=== PATIENT | female | born 1940 | race Caucasian/White ===

== ENCOUNTER → 2016-12-11 | Outpatient (CLI) | payer MEDICARE ==
--- NOTE | 2016-12-11 10:58 | CT ---
EXAM DESCRIPTION: Chest w/Contrast CLINICAL HISTORY: PULMONARY NODULE COMPARISON: September 02, 2016 TECHNIQUE: Post IV contrasted multidetector CT imaging of the chest. Multiplanar reconstructions were provided. FINDINGS: The inflammatory soft tissue density seen within the lateral right lung base is stable. It measures 2 cm in diameter. There is once again moderate emphysema noted bilaterally. All findings within the lungs are unchanged when compared to the prior study from three months ago. No pleural disease noted. The mediastinum has remained stable with no evidence of lymphadenopathy. There remains prominence of the pulmonary arteries which can be seen in setting of pulmonary artery hypertension. Coronary artery disease noted. The upper abdomen reveals no acute findings. IMPRESSION: The 2 cm area of soft tissue density within the right lung base is again noted. The differential remains the same and could be secondary to resolving inflammation or a malignancy. A follow-up in 6-9 months is suggested to help document stability. All remaining findings are unchanged including the emphysema and suggestion of pulmonary artery hypertension. Electronically signed by: Skyler Pablo MD 12/11/2016 10:57 AM CDT
== END | disposition home or self-care (01) ==
LOC: CT 09:26
PROVIDERS: ATTEND Nurse Practitioner Family
DX: E11.9 Type 2 diabetes mellitus without complications (principal); R91.1 Solitary pulmonary nodule

== ENCOUNTER 2017-07-06 08:45 | Day surgery (SDC) | payer MEDICARE ==
[2017-07-06] MEDS: PROPARACAINE 0.5% OPHTH SOL 15 ML BTTL ONE ×2 (08:19→09:20)
[~2017-07-06 08:45] MED LIST: DEXTROSE 5% 100ML 100 ML IVPB ONE; MIDAZOLAM INJ 2 MG/2 ML VIAL ONE; TOBRAMYCIN-DEXAMETH OPHTH SOL 1 DROP RIGHT_EYE ONE; TROP 1%/CYCLOPEN 1%/PHENYL 2% DROPS ONE
[2017-07-06] MEDS ORDERED: LIDOCAINE 1% PF 2 ML AMP INJ ONE (09:32)
[2017-07-06] MEDS ORDERED: GENTAMICIN 0.3% OPHTH SOL 1 DROP RIGHT_EYE ONE ×2 (09:33→09:38)
[2017-07-06] MEDS ORDERED: DEXAMETHASONE 0.1% OPHTH SOL 1 DROP RIGHT_EYE ONE ×2 (09:33→09:38)
[2017-07-06] MEDS ORDERED: BRIMONIDINE 0.2% OPHTH DROPS RIGHT_EYE ONE ×2 (09:34→09:38)
[2017-07-06 15:05] VITALS: BP 157/71; TEMP 98.4; O2SAT 95
== END 2017-07-06 10:20 | disposition home or self-care (01) ==
LOC: AMB 08:45
PROVIDERS: ATTEND Ophthalmology
DX: H25.11 Age-related nuclear cataract, right eye (principal); I10 Essential (primary) hypertension; I25.10 Atherosclerotic heart disease of native coronary artery without angina pectoris; E11.36 Type 2 diabetes mellitus with diabetic cataract; K21.9 Gastro-esophageal reflux disease without esophagitis; J44.9 Chronic obstructive pulmonary disease, unspecified; F17.200 Nicotine dependence, unspecified, uncomplicated; Z88.0 Allergy status to penicillin; Z88.8 Allergy status to other drugs, medicaments and biological substances; Z79.82 Long term (current) use of aspirin; Z79.4 Long term (current) use of insulin; Z79.899 Other long term (current) drug therapy
CPT/HCPCS: 36416; 66984; 82948; J2250; J7060

== ENCOUNTER 2017-07-16 10:00 | Day surgery (SDC) | payer MEDICARE ==
[2017-07-16] MEDS ORDERED: PROPARACAINE 0.5% OPHTH SOL 15 ML BTTL LEFT_EYE ONE ×4 (10:24→13:01)
[2017-07-16] MEDS ORDERED: TOBRAMYCIN SULF 0.3 % OPHT SOL 1 DROP LEFT_EYE ONE ×5 (10:25→13:01)
[2017-07-16] MEDS ORDERED: TROP 1%/CYCLOPEN 1%/PHENYL 2% DROPS OPHTH ONE ×3 (10:27→12:12)
[2017-07-16] MEDS ORDERED: MIDAZOLAM INJ 2 MG/2 ML VIAL ONE (11:17)
[2017-07-16] MEDS ORDERED: DEXTROSE 5% 100ML 100 ML IVPB ONE (12:17)
[2017-07-16] MEDS ORDERED: LIDOCAINE 1% PF 2 ML AMP INJ ONE (12:42)
[2017-07-16] MEDS ORDERED: DEXAMETHASONE 0.1% OPHTH SOL 1 DROP LEFT_EYE ONE ×2 (12:42→13:01)
[2017-07-16] MEDS ORDERED: BRIMONIDINE 0.2% OPHTH DROPS LEFT_EYE ONE ×2 (12:43→13:01)
[2017-07-16 13:22] VITALS: BP 176/78; TEMP 98.5; O2SAT 96
== END 2017-07-16 13:25 | disposition home or self-care (01) ==
LOC: AMB 10:00
PROVIDERS: ATTEND Ophthalmology
DX: H25.12 Age-related nuclear cataract, left eye (principal); I10 Essential (primary) hypertension; I25.10 Atherosclerotic heart disease of native coronary artery without angina pectoris; E11.36 Type 2 diabetes mellitus with diabetic cataract; Z88.0 Allergy status to penicillin; Z88.8 Allergy status to other drugs, medicaments and biological substances; Z79.4 Long term (current) use of insulin; Z79.899 Other long term (current) drug therapy
CPT/HCPCS: 66984; 82948; J2250; J7060

== ENCOUNTER → 2017-10-30 | Outpatient (CLI) | payer MEDICARE ==
--- NOTE | 2017-11-01 23:39 | CT ---
EXAM DESCRIPTION: Chest w/Contrast CLINICAL HISTORY: SOLITARY PULMONARY NODULE COMPARISON: 12/11/2016, 09/02/2016. TECHNIQUE: Axial CT images of the chest were acquired after the administration of intravenous contrast. Coronal and sagittal reconstructions were obtained. This exam was performed according to our departmental dose-optimization program which includes use of Automated Exposure Control, adjustment of the mA and/or kV according to patient size and/or use of iterative reconstruction technique. FINDINGS: Neck base: Subcentimeter left thyroid nodule. No further imaging follow-up is required. Mediastinum: Unremarkable. Lymph Nodes: No lymphadenopathy. Heart and pericardium: Normal heart size. Coronary artery calcifications. Aorta: Moderate atherosclerosis of the thoracic aorta. No aneurysm. Pulmonary Artery: Unremarkable. Central Airways: Patent. Pleura: No pneumothorax or pleural effusion. Lungs: Stable upper lobe predominant emphysema. Craniocaudal extent of right lower lobe spiculated lesion has increased in size since 12/11/2016, measuring 13 mm, previously measuring 11 mm. Most superior aspect of lesion, image 101 series 602 measures 7 mm, progressed from 2016 where it measured 5 mm. Most medial aspect of the lesion, image 90 series 4 appears more solid and nodular as compared to prior exams. Small centrilobular groundglass nodules within the right upper lobe image 34 and 33 of series 4. 2 mm subpleural nodule image 37, left upper lobe. Upper abdomen: Probable hepatic steatosis. 12 mm hypoattenuating lesion of the spleen medially appears stable from the prior exam. 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 Bones and soft tissues: No acute osseous or soft tissue abnormalities. Calcified lesion of the left breast. IMPRESSION: Progressive increase in size of right lower lobe pulmonary nodule since 09/02/2016 and 12/11/2016. Findings are concerning for malignancy. PET/CT or tissue sampling is recommended. Upper lobe predominant emphysema. Small bilateral pulmonary nodules may be followed on subsequent exams. 12 mm hypoattenuating lesion of the spleen appears stable from prior exam, and may be reevaluated on subsequent exams. Electronically signed by: Zach Gupta MD 11/01/2017 11:38 PM [employer] SPR[employer]TER
== END ==
LOC: CT 09:09
PROVIDERS: ATTEND Family Medicine
DX: R91.1 Solitary pulmonary nodule (principal); E11.9 Type 2 diabetes mellitus without complications; I10 Essential (primary) hypertension; J43.9 Emphysema, unspecified; D73.89 Other diseases of spleen

== ENCOUNTER → 2018-04-02 | Outpatient (CLI) | payer MEDICARE ==
--- NOTE | 2018-04-02 16:09 | US ---
EXAM DESCRIPTION: Extremity,Lower LT Arteries: Ultrasound. CLINICAL HISTORY: CAD I25.10 COMPARISON: None. TECHNIQUE: Doppler evaluation of the bilateral lower extremity arterial flow waveforms and velocities. FINDINGS: Arterial waveforms in the left lower extremity are biphasic from the left common femoral artery through the left dorsalis pedis artery.. . No significant blunting of the waveforms Comments: Velocities in the left lower extremity are physiologic. IMPRESSION: Doppler ultrasound evaluation of the left lower extremity arterial system indicating no evidence for significant atherosclerotic occlusive disease. Electronically signed by: Anderson Lei MD 04/02/2018 4:08 PM CDT
== END ==
LOC: US 10:00
PROVIDERS: ATTEND Family Medicine
DX: I25.10 Atherosclerotic heart disease of native coronary artery without angina pectoris (principal)

== ENCOUNTER → 2018-04-06 | Outpatient (CLI) | payer MEDICARE ==
--- NOTE | 2018-04-06 16:23 | MRI ---
EXAM DESCRIPTION: Lumbar Spine w/o Contrast : Magnetic Resonance Imaging. CLINICAL HISTORY: LUMBAR RADICULOPATHY COMPARISON: LUMBAR TECHNIQUE: Multiplanar, multiple standard sequences, non contrast MRI, lumbar spine. FINDINGS: L5-S1: Disc desiccation and minimal disc space loss posterior. Schmorl's node inferior L5. Ligament hypertrophy and facet arthrosis with mild to moderate canal narrowing. Modic type II endplate reactive changes on the right side with disc spur complex abutting the exiting right L5 nerve and borderline foraminal stenosis. Minimal narrowing right foramen. L4-5: Minimal disc space loss on the right and mild to moderate disc space loss . 5 mm disc bulge Into the left foramen with Modic type I endplate reactive changes. Disc spur complex encroaching on the left foramen which is nearly stenotic. Posterior disc bulge 4 to 5 mm in the left of midline with minimal effacement of the left subarticular recess abutting the descending left L5 nerve. Mild narrowing right foramen. L3-4: Disc desiccation with tiny posterior bulge. Minimal ligament hypertrophy posteriorly. Mild facet arthrosis. Canal and foramina are patent. L2-3: Normal signal in the disc and disc space. Minimal flavum ligament hypertrophy. Canal and foramina are patent. L1-2: Disc desiccation and tiny posterior and anterior bulge. Posterior elements unremarkable. Canal and foramina are patent. T12-L1: Normal disc and disc space. Posterior elements are unremarkable. Canal and foramina are patent. Conus terminates at this level. Minimal levoscoliosis L2-3. Paravertebral soft tissues paraspinal muscle atrophy. Filling defects noted in the inferior gallbladder bright signal.. Scattered well-circumscribed objects bright T1 and T2 signal in the vertebral bodies and posterior elements. Otherwise normal marrow signal in the remaining vertebral bodies and the posterior elements. Vertebral bodies are not compressed at any level. IMPRESSION: 1. Right side moderate spondylosis at L5-S1 with disc spur complex abutting the exiting right L5 nerve bilateral foraminal stenosis. 2. 5 mm disc osteophyte bulge into the left L4-5 foramen, nearly stenotic, abutting the left L4 nerve. Left posterior disc bulge in the canal abutting the descending left L5 nerve in the subarticular recess. 3. Multiple hemangiomas. Electronically signed by: Anderson Lei MD 04/06/2018 4:21 PM CDT
== END ==
LOC: MRI 10:02
PROVIDERS: ATTEND Family Medicine
DX: M47.27 Other spondylosis with radiculopathy, lumbosacral region (principal); D18.09 Hemangioma of other sites

== ENCOUNTER 2018-04-18 05:06 | Emergency (ER) | payer MEDICARE ==
--- NOTE | 2018-04-18 06:06 | ED.PDOC ---
History of Present Illness - General Chief Complaint: Diabetic Complaint Stated Complaint: low blood sugar, racing heartbeat Time Seen by Provider: 04/18/18 06:03 Exam Limitations: no limitations - History of Present Illness Initial Comments: WOKE UP AND HER BLOOD SUGAR WAS 41, SHE WAS ALSO HAVING PAIN TO THE RIGHT LOWER LEG AND FELT THAT HER HEART WAS RACING. SHE IS AN INSULIN DEPENDENT DIABETIC. SHE DENIES ANY CHEST PAIN Timing/Duration: 1-3 hours Severity: moderate Improving Factors: nothing Worsening Factors: nothing Associated Symptoms: denies symptoms Allergies/Adverse Reactions: Allergies Ibuprofen [From Motrin] Allergy (Verified 04/18/18 05:36) Penicillins Allergy (Verified 04/18/18 05:36) Home Medications: Ambulatory Orders Insulin Lispro [HumaLOG] 3 - 4 unit SC PRN 05/02/16 Aspirin (Buffered) 325 mg [Bufferin 325 mg] 1 ea PO QD #30 tab 05/03/16 Insulin Glargine [Lantus Solostar] 30 unit SC BEDTIME #0 05/03/16 Ipratropium/Albuterol [Duoneb] 3 ml INH RTQID #0 vial 05/03/16 Valsartan [Diovan] 80 mg PO DAILY #0 tab 05/03/16 cloNAZepam [Klonopin] 0.5 mg PO QID PRN #0 tab 05/03/16 Insulin Lispro [Humalog] 0 u SUBCU ACHS PRN 07/16/17 Review of Systems - Review of Systems Constitutional: States: weakness EENTM: States: no symptoms reported Respiratory: States: no symptoms reported Cardiology: States: no symptoms reported Gastrointestinal/Abdominal: States: no symptoms reported Genitourinary: States: no symptoms reported Musculoskeletal: States: back pain, muscle pain Skin: States: no symptoms reported Neurological: States: no symptoms reported Endocrine: States: no symptoms reported Hematologic/Lymphatic: States: no symptoms reported Past Medical History (General) - Patient Medical History Hx Seizures: No Hx Stroke: Yes Hx Dementia: No Hx Asthma: No Hx of COPD: Yes Hx Cardiac Disorders: Yes Hx Congestive Heart Failure: No Hx Pacemaker: No Hx Hypertension: Yes Hx Thyroid Disease: No Hx Diabetes: Yes Hx Gastroesophageal Reflux: No Hx Renal Disease: No Hx Cancer: No Hx of HIV: No Hx Hepatitis C: No Hx MRSA: No - Vaccination History Hx Tetanus, Diphtheria Vaccination: No Hx Influenza Vaccination: No Hx Pneumococcal Vaccination: No - Social History Hx Tobacco Use: Yes Hx Chewing Tobacco Use: No Hx Alcohol Use: No Hx Substance Use: No Hx Substance Use Treatment: No Hx Depression: No Hx Physical Abuse: No Hx Emotional Abuse: No - Female History Patient : No Family Medical History - Family History Mother Family History: Unknown Age (years): 69 Living Status: Cause of : brain ca and blastoma Hx Family Asthma: No Hx Family Congestive Heart Failure: No Hx Family Hypertension: Yes Hx Family Stroke: No Hx Cardiac Disease: Yes Hx Family Diabetes: Yes - mother Age of Onset (years of age): 69 Hx Family Cancer: Yes Father Age (years): 86 Living Status: Cause of : heart and lungs Hx Family Asthma: No Hx Family Congestive Heart Failure: Yes Hx Family Hypertension: Yes Hx Family Stroke: No Hx Cardiac Disease: Yes Hx Family Diabetes: No Hx Family Cancer: Yes Physical Exam - Physical Exam General Appearance: Alert, Comfortable, Well Developed, Well Groomed, Well Hydrated, Well Nourished Eye Exam: bilateral normal Ears, Nose, Throat: hearing grossly normal, normal ENT inspection, normal pharynx Neck: non-tender, full range of motion, supple, normal inspection Respiratory: chest non-tender, lungs clear, normal breath sounds, no respiratory distress, no accessory muscle use Cardiovascular/Chest: normal peripheral pulses, regular rate, rhythm, no edema, no gallop Peripheral Pulses: radial,right: 2+, radial,left: 2+, dorsalis pedis,right: 2+, dorsalis pedis,left: 2+ Gastrointestinal/Abdominal: normal bowel sounds, non tender, soft, no organomegaly, no pulsatile mass Extremity: normal range of motion Neurologic: no motor/sensory deficits, normal mood/affect, oriented x 3 Skin Exam: normal color Progress - Progress Progress: 04/18/18 06:09 AFTER ORANGE JUICE AND CRACKERS HER BBG IS NOW 181. AHW FEELS MUCH BETTER. WILL DC HOME. - Results/Orders Results/Orders: EKG: HR OF 77, WI INTERVAL OF 196, QRS OF 78, QTC OF 459, AXIS OF 62. 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 Copy, Patient Portal Self Enrollment Instructions: DI for Diabetes Type 2, Low Blood Sugar, Adult (DC) Referrals: Kenyon Hernandez MD [Primary Care Provider] - 1-2 Weeks Home Medications: Ambulatory Orders Insulin Lispro [HumaLOG] 3 - 4 unit SC PRN 05/02/16 Aspirin (Buffered) 325 mg [Bufferin 325 mg] 1 ea PO QD #30 tab 05/03/16 Insulin Glargine [Lantus Solostar] 30 unit SC BEDTIME #0 05/03/16 Ipratropium/Albuterol [Duoneb] 3 ml INH RTQID #0 vial 05/03/16 Valsartan [Diovan] 80 mg PO DAILY #0 tab 05/03/16 cloNAZepam [Klonopin] 0.5 mg PO QID PRN #0 tab 05/03/16 Insulin Lispro [Humalog] 0 u SUBCU ACHS PRN 07/16/17
[2018-04-19 17:46] VITALS: BP 160/62; TEMP 96.6; O2SAT 99
== END 2018-04-18 06:30 | disposition home or self-care (01) ==
LOC: ER 05:06
DX: E11.649 Type 2 diabetes mellitus with hypoglycemia without coma (principal); M79.661 Pain in right lower leg; I10 Essential (primary) hypertension; J44.9 Chronic obstructive pulmonary disease, unspecified; I51.9 Heart disease, unspecified; Z79.4 Long term (current) use of insulin; Z79.82 Long term (current) use of aspirin; Z79.899 Other long term (current) drug therapy; Z86.73 Personal history of transient ischemic attack (TIA), and cerebral infarction without residual deficits; Z88.0 Allergy status to penicillin; Z88.6 Allergy status to analgesic agent; Z87.891 Personal history of nicotine dependence

== ENCOUNTER 2018-09-10 07:41 | Observation (INO) | payer MEDICARE ==
[~2018-09-10 07:41] MED LIST changes: -DEXTROSE 5% 100ML 100 ML IVPB ONE; +DEXTROSE 50% 25 GM/50 ML SYG IV ONE; -MIDAZOLAM INJ 2 MG/2 ML VIAL ONE; -TOBRAMYCIN-DEXAMETH OPHTH SOL 1 DROP RIGHT_EYE ONE; -TROP 1%/CYCLOPEN 1%/PHENYL 2% DROPS ONE
[2018-09-10] MEDS ORDERED: DEXTROSE 50% 25 GM/50 ML SYG IV ONE (07:44)
--- NOTE | 2018-09-10 07:54 | ED.PDOC ---
History of Present Illness - General Chief Complaint: General Stated Complaint: Generalized weakness, ground level fall Time Seen by Provider: 09/10/18 07:48 Source: patient Exam Limitations: clinical condition - History of Present Illness Initial Comments: patient comes in today for 1 day history of difficulty speaking, finding her words, and right sided lower extremity pain. Patient states yesterday she noted she just couldn't walk and was having a difficult time with her speech. She's tried to write something and couldn't make her hand do what she wanted it to. This started yesterday morning and is staying about the same ever since. Today EMS was called when she fell from ground level. Patient states she does not believe she herself but is just concerned with the weakness. On arrival EMS had found her to have a blood sugar of 54s and 24 grams of oral glucose was given but blood sugar recheck was 46. Patient denies any other systemic symptoms. She states below the knee on her right leg started hurting yesterday before the fall but she cannot localize a specific problem. 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 Timing/Duration: 24 hours Severity: moderate Improving Factors: nothing Worsening Factors: nothing Associated Symptoms: weakness Allergies/Adverse Reactions: Allergies Ibuprofen [From Motrin] Allergy (Verified 04/18/18 05:36) Penicillins Allergy (Verified 04/18/18 05:36) Home Medications: Ambulatory Orders Aspirin (Buffered) 325 mg [Bufferin 325 mg] 1 ea PO QD #30 tab 05/03/16 Insulin Lispro [Humalog] 0 u SUBCU ACHS PRN 07/16/17 Amlodipine Besylate 5 mg PO DAILY 09/10/18 Insulin Degludec [Tresiba Flextouch] 24 units SUBCU BEDTIME 09/10/18 Ipratropium/Albuterol [Duoneb] 3 ml INH RTQID PRN 09/10/18 Losartan Potassium 50 mg PO DAILY 09/10/18 Review of Systems - Review of Systems Constitutional: States: weakness. Denies: fever, malaise EENTM: States: no symptoms reported. Denies: eye pain, ear pain, nose congestion Respiratory: States: no symptoms reported. Denies: cough, short of breath, wheezing Cardiology: States: no symptoms reported. Denies: chest pain, edema, palpitations Gastrointestinal/Abdominal: States: no symptoms reported. Denies: abdominal pain, diarrhea, nausea, vomiting Musculoskeletal: States: see HPI Neurological: States: see HPI Past Medical History (General) - Patient Medical History Hx Seizures: No Hx Stroke: Yes Hx Dementia: No Hx Asthma: No Hx of COPD: Yes Hx Cardiac Disorders: Yes Hx Congestive Heart Failure: No Hx Pacemaker: No Hx Hypertension: Yes Hx Thyroid Disease: No Hx Diabetes: Yes Hx Gastroesophageal Reflux: No Hx Renal Disease: No Hx Cancer: No Hx of HIV: No Hx Hepatitis C: No Hx MRSA: No - Vaccination History Hx Tetanus, Diphtheria Vaccination: No Hx Influenza Vaccination: No Hx Pneumococcal Vaccination: No - Social History Hx Tobacco Use: Yes Hx Chewing Tobacco Use: No Hx Alcohol Use: No Hx Substance Use: No Hx Substance Use Treatment: No Hx Depression: No Hx Physical Abuse: No Hx Emotional Abuse: No - Female History Patient : No Family Medical History - Family History Mother Family History: Unknown Age (years): 69 Living Status: Cause of : brain ca and blastoma Hx Family Asthma: No Hx Family Congestive Heart Failure: No Hx Family Hypertension: Yes Hx Family Stroke: No Hx Cardiac Disease: Yes Hx Family Diabetes: Yes - mother Age of Onset (years of age): 69 Hx Family Cancer: Yes Father Age (years): 86 Living Status: Cause of : heart and lungs Hx Family Asthma: No Hx Family Congestive Heart Failure: Yes Hx Family Hypertension: Yes Hx Family Stroke: No Hx Cardiac Disease: Yes Hx Family Diabetes: No Hx Family Cancer: Yes Physical Exam - Physical Exam General Appearance: Alert, Frail Eye Exam: bilateral normal Ears, Nose, Throat: hearing grossly normal, normal ENT inspection, normal pharynx Neck: non-tender, full range of motion, supple, normal inspection Respiratory: chest non-tender, lungs clear, normal breath sounds Cardiovascular/Chest: normal peripheral pulses, regular rate, rhythm, no murmur Peripheral Pulses: radial,right: 2+ Gastrointestinal/Abdominal: normal bowel sounds, non tender, soft Back Exam: normal inspection Extremity: normal range of motion, non-tender, normal inspection Neurologic: alert, oriented x 3, facial droop - slight right sided weakness, motor weakness - right sided pronator drift , other - NIH stroke scale of 3 Skin Exam: normal color Progress - Progress Progress: patient is feeling a little better and not as weak with elevation of BS. However, she still has decreased fine motor on her right and speech is much different per pt and her family from baseline. Most likely TIA vs small CVA. CT is normal. The symptoms have now been present for 24 hours and she is out of treatment window. They are improving slowly. Will call for admission for observation and possible PT/ST eval and treatment. 09/10/18 09:04 09/10/18 09:33 Neuro consult agree for admission as she is out of the treatment window. will help with stroke care and will get her admitted. Spoke to substation operator chief FIREMAN and she is in agreement. - Results/Orders Results/Orders: Laboratory Results WBC 6.3 K/mm3 (4.8-10.8) 09/10/18 07:35 RBC 5.13 M/mm3 (4.20-5.40) 09/10/18 07:35 Hgb 14.7 gm/dL (12.0-16.0) 09/10/18 07:35 Hct 44.7 % (36.0-47.0) 09/10/18 07:35 MCV 87.2 fl (81.0-99.0) 09/10/18 07:35 MCH 28.7 pg (27.0-31.0) 09/10/18 07:35 MCHC 33.0 g/dL (33.0-37.0) 09/10/18 07:35 RDW 14.4 % (11.5-14.5) 09/10/18 07:35 Plt Count 328 K/mm3 (130-400) 09/10/18 07:35 MPV 8.1 fl (7.40-10.4) 09/10/18 07:35 Absolute Neuts (auto) 3.40 K/uL (1.8-6.8) 09/10/18 07:35 Absolute Lymphs (auto) 2.00 K/uL (1.0-3.4) 09/10/18 07:35 Absolute Monos (auto) 0.70 K/uL (0.2-0.8) 09/10/18 07:35 Absolute Eos (auto) 0.00 K/uL (0.0-0.4) 09/10/18 07:35 Absolute Basos (auto) 0.10 K/uL (0.0-0.1) 09/10/18 07:35 Neutrophils % 55.1 % (42.0-78.0) 09/10/18 07:35 Lymphocytes % 32.5 % (20.0-50.0) 09/10/18 07:35 Monocytes % 10.8 % (2.0-9.0) H 09/10/18 07:35 Eosinophils % 0.5 % (1.0-5.0) L 09/10/18 07:35 Basophils % 1.1 % (0.0-2.0) 09/10/18 07:35 PT 9.7 SECONDS (9.0-10.9) 09/10/18 07:35 INR 0.97 (0.9-1.15) 09/10/18 07:35 PTT (SP) 24.5 SECONDS (21.8-31.6) 09/10/18 07:35 Sodium 143 mmol/L (135-145) 09/10/18 07:35 Potassium 3.3 mmol/L (3.6-5.0) L 09/10/18 07:35 Chloride 106 mmol/L (101-111) 09/10/18 07:35 Carbon Dioxide 28 mmol/L (21-31) 09/10/18 07:35 Anion Gap 12.3 (12-18) 09/10/18 07:35 BUN 12 mg/dL (7-18) 09/10/18 07:35 Creatinine 0.57 mg/dL (0.6-1.3) L 09/10/18 07:35 BUN/Creatinine Ratio 21.1 (10-20) H 09/10/18 07:35 POC Glucose 282 mg/dL (70-105) H 09/10/18 07:35 Random Glucose 48 mg/dL (70-105) L 09/10/18 07:35 Serum Osmolality 281.9 mOsm/L (275-295) 09/10/18 07:35 Lactic Acid 0.9 mmol/L (0.5-2.2) 09/10/18 07:35 Calcium 9.5 mg/dL (8.4-10.2) 09/10/18 07:35 Total Bilirubin 0.7 mg/dL (0.2-1.0) 09/10/18 07:35 AST 21 IU/L (10-42) 09/10/18 07:35 ALT 17 IU/L (10-60) 09/10/18 07:35 Alkaline Phosphatase 90 IU/L (42-121) 09/10/18 07:35 Troponin I < 0.02 ng/mL (0.01-0.05) 09/10/18 07:35 Serum Total Protein 7.4 gm/dL (6.4-8.2) 09/10/18 07:35 Albumin 3.9 g/dl (3.2-5.5) 09/10/18 07:35 Globulin 3.5 gm/dL (2.3-3.5) 09/10/18 07:35 Albumin/Globulin Ratio 1.1 (1.1-1.9) 09/10/18 07:35 Patient Name: ANGELICA SANCHEZ Gender: Female Date of : 1940 Referring Physician: MERON STEELE Organization: [facility] Accession Number: [id number] Requested Date: September 10, 2018 07:49 Report Status: Final Requested Procedure: 1 Procedure Description: Head Modality: CT Findings Reporting MD: Ian Britt MD: Not available Dictation Time: Vice President Fixed Income: Not available Sports Teacher Date: EXAM DESCRIPTION: Head CLINICAL HISTORY: altered LOC weakness R with dysarthria COMPARISON: May 02, 2016 TECHNIQUE: Noncontrast transaxial CT images of the head are obtained from base to vertex. This exam was performed according to our departmental dose-optimization program, which includes automated exposure control, adjustment of the mA and/or kV according to patient size and/or use of iterative reconstruction technique. FINDINGS: The midline structures are not displaced. Sulci are age-appropriate. There are areas of decreased attenuation in the periventricular white matter and the white matter of the centrum semiovale. There is no evidence of mass, mass-effect, hydrocephalus, or acute intracranial hemorrhage. No abnormal extra axial fluid collection is seen. Bone windows show no evidence of depressed skull fracture. Mild calcifications of the intracranial carotid arteries are seen. The visualized paranasal sinuses are unremarkable. IMPRESSION: 1. Age-appropriate atrophy with evidence of old small vessel ischemic type changes seen. 2. No acute abnormality is seen on noncontrast CT of the head. Departure - Departure Clinical Impression: CVA (cerebral vascular accident) Qualifiers: CVA mechanism: unspecified Qualified Code(s): I63.9 - Cerebral infarction, unspecified Disposition: Admit Patient Departure Forms: ED Discharge - Pt. Copy, Patient Portal Self Enrollment Referrals: Kenyon Hernandez MD [Primary Care Provider] - 1-2 Weeks Home Medications: Ambulatory Orders Aspirin (Buffered) 325 mg [Bufferin 325 mg] 1 ea PO QD #30 tab 05/03/16 Insulin Lispro [Humalog] 0 u SUBCU ACHS PRN 07/16/17 Amlodipine Besylate 5 mg PO DAILY 09/10/18 Insulin Degludec [Tresiba Flextouch] 24 units SUBCU BEDTIME 09/10/18 Ipratropium/Albuterol [Duoneb] 3 ml INH RTQID PRN 09/10/18 Losartan Potassium 50 mg PO DAILY 09/10/18 Decision To Admit - Decistion To Admit Decision to Admit Reason: Admit from ER Decision to Admit Date: 09/10/18 Decision to Admit Time: 09:37
--- NOTE | 2018-09-10 08:11 | RAD ---
EXAM DESCRIPTION: Ankle,Right 2 Views CLINICAL HISTORY: pain COMPARISON: None. IMPRESSION: 2 views of the right ankle show diffuse osteopenia of the osseous structures without evidence of acute fracture, focal bone destruction, or joint dislocation. Soft tissues are unremarkable. Partly visualized mild osteoarthritic changes of the midfoot tarsal bones are noted. Electronically signed by: Ian Britt MD 09/10/2018 8:10 AM [facility]
--- NOTE | 2018-09-10 08:12 | RAD ---
EXAM DESCRIPTION: Tibia/Fibula,Right CLINICAL HISTORY: 78 years Female, pain COMPARISON: None. FINDINGS: Two views of the right tibia and fibula were obtained. The distal tibia and fibula are excluded from this exam, but no fracture or malalignment is seen. No radiopaque foreign body or soft tissue gas. IMPRESSION: Negative exam, with nonvisualization of the distal right tibia and fibula. Electronically signed by: Jones Reynoso MD 09/10/2018 8:11 AM [facility]
--- NOTE | 2018-09-10 08:41 | CT ---
EXAM DESCRIPTION: Head CLINICAL HISTORY: altered LOC weakness R with dysarthria COMPARISON: May 02, 2016 TECHNIQUE: Noncontrast transaxial CT images of the head are obtained from base to vertex. This exam was performed according to our departmental dose-optimization program, which includes automated exposure control, adjustment of the mA and/or kV according to patient size and/or use of iterative reconstruction technique. FINDINGS: The midline structures are not displaced. Sulci are age-appropriate. There are areas of decreased attenuation in the periventricular white matter and the white matter of the centrum semiovale. There is no evidence of mass, mass-effect, hydrocephalus, or acute intracranial hemorrhage. No abnormal extra axial fluid collection is seen. Bone windows show no evidence of depressed skull fracture. Mild calcifications of the intracranial carotid arteries are seen. The visualized paranasal sinuses are unremarkable. IMPRESSION: 1. Age-appropriate atrophy with evidence of old small vessel ischemic type changes seen. 2. No acute abnormality is seen on noncontrast CT of the head. Electronically signed by: Ian Britt MD 09/10/2018 8:40 AM [facility]
--- NOTE | 2018-09-10 10:17 | HP ---
SUPERVISING PHYSICIAN: Roel Groves M.D. CHIEF COMPLAINT: Generalized weakness and same level fall. HISTORY OF PRESENT ILLNESS: This is a 78 year-old female who has had an approximately 1 day history of difficulty speaking and right lower extremity pain. She stated that yesterday she just could not walk very well and was having a difficult time with her speech. She tried to write something and she could not make her hand do what she wanted it to. It started on morning and it has not progressed since. She was brought to the Emergency Room today after she had a same level fall. She states she did not hurt herself with the fall but she was concerned with the weakness. On arrival, EMS found her to have good sugar of 54 and gave her 24 grams of glucose. The blood sugar recheck was 46. The patient did say since she had the weakness she has not eaten much but she took her diabetic medication. She states that below the knee on her right leg started hurting yesterday but she was unable to tell of a specific injury. She has had an ischemic cerebrovascular accident approximately 5 years ago that left her with left sided weakness. In the E. R., her vital signs showed her to be afebrile, heart rate 83, blood pressure 122/70, it did go up as high as 157/69. Respiratory rate was 18, O2 sat was 94% on room air. Lab showed a CBC that was basically within normal limits. Chemistry showed sodium 143 with a slightly low potassium of 3.3, chloride 106, carbon dioxide 28, BUN 12, creatinine 0.57, glucose 48. She received some D50 and it went up to 282. Liver enzymes were within normal limits. Urinalysis was basically within normal limits. Head CT showed: 1) Age appropriate atrophy with evidence of old small vessel ischemic type changes. 2) No acute abnormality is seen on noncontrast CT of the head. Right ankle x-ray showed two views of the right ankle that showed diffuse osteopenia of the osseous structure without evidence of acute fracture, focal bone destruction or joint dislocation. Right tibia/fibula x-ray showed negative exam with nonvisualization of the distal right tibia and fibula. I was called for hospital admission. After admission the patient has a somewhat difficult time getting out the words that she would like. Her daughter was at the bedside. She complained of left sided weakness from her old stroke and said that her right leg did not hurt as much as it did previously. PAST MEDICAL HISTORY: 1. Carotid artery stenosis. 2. Cerebrovascular accident approximately 5 years ago. 3. Chronic obstructive pulmonary disease in a chronic smoker. 4. Coronary artery disease. 5. Hypertension. 6. Hyperlipidemia. 7. Lumbar disc disease. 8. Lumbar radiculopathy. 9. Solitary pulmonary nodule. PAST SURGICAL HISTORY: 1. Carotid endarterectomy on the left in 2016. 2. Hernia repair in 2012. 3. Lasik surgery in 2017. OUTPATIENT MEDICATIONS: 1. Humalog insulin. 2. DuoNeb. 3. Amlodipine. 4. 81 mg chewable aspirin. 5. Tresiba 24 units at bedtime. 6. Losartan. ALLERGIES: IBUPROFEN AND PENICILLIN. FAMILY HISTORY: Positive for coronary artery disease, astroblastoma cancer, rheumatoid arthritis, diabetes mellitus type 2 and hypothyroidism. SOCIAL HISTORY: She lives in [place]. She is retired. She is . She has 2 stepchildren. She currently smokes 5 cigarettes per day. She previously was a heavy smoker and has been for most of her life. She denies any ETOH or illicit drug use. REVIEW OF SYSTEMS: GENERAL: Negative for fatigue, fever or weight changes. HEENT: Negative for ear pain, sinus symptoms, vision changes or sore throat. RESPIRATORY: Negative for coughing, wheezing or shortness of breath. CARDIAC: Negative for chest pain, palpitations or tachycardia. GASTROINTESTINAL: Negative for abdominal pain, nausea, vomiting or diarrhea. MUSCULOSKELETAL: As per the History of Present Illness. NEUROLOGIC: As per the History of Present Illness. GENITOURINARY: Denies hematuria, dysuria or polyuria. PHYSICAL EXAMINATION: VITAL SIGNS: Temperature 97.9, heart rate 63, blood pressure 145/71, respiratory rate 18, O2 sat 96% on room air. GENERAL: This is a 78 year-old thin, frail female lying in her hospital bed. She is in no acute distress. HEENT: Normocephalic and atraumatic. Pupils are equal and reactive. Oropharynx is clear. NECK: Supple without mass. RESPIRATORY: Essentially clear to auscultation bilaterally. CHEST: There is equal rise and fall of the chest with inspiration and expiration. CARDIOVASCULAR: Regular rate and rhythm. GASTROINTESTINAL: Abdomen is soft, nondistended, non-tender. Bowel sounds are positive. EXTREMITIES: No clubbing, cyanosis or edema. She is slightly weaker on that left lower extremity than her right lower extremity. Bilateral upper extremities are equal strength. NEUROLOGIC: She is alert and oriented times three. She does have a difficult time speaking and she has dysarthria. SKIN: Warm and dry. LABORATORY: Labs are as per the History of Present Illness. Her carotid ultrasound shows occluded right internal carotid artery, high velocity flow in the external carotid arteries bilaterally consistent with critical stenosis on the right and high grade stenosis on the left. Antegrade flow in the vertebral arteries. All other labs and films have been reviewed via the EMR. ASSESSMENT: 1. 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 2. Carotid stenosis with critical stenosis on the right and high grade stenosis on the left. 3. Hypertension. 4. Chronic obstructive pulmonary disease without exacerbation. 5. Tobacco abuse in a chronic smoker. 6. History of prior cerebrovascular accident approximately 5 years ago. 7. Diabetes mellitus type 2 with hypoglycemia on admission most likely due to no food intake in the last 24 hours. PLAN: We will place the patient in observation. We will do neuro checks. I have already resulted the carotid Doppler and a neurologic consultation was done in the E. R., and said that we were doing appropriate treatment. She will have a lipid panel in the AM with her routine labs. I have also started her on sliding scale insulin with a.c. and h.s. coverage. She is on a PPI for ulcer prophylaxis and Lovenox for DVT prophylaxis. I have restarted her home medications. We have also initiated a consultation to [facility] and at some point she will most likely need a referral for severe carotid stenosis. She will be on an aspirin as well as Lovenox for right now. Will continue to monitor closely and follow as needed. #[id number] [facility]
[2018-09-10] MEDS ORDERED: SODIUM CHLORIDE 0.9% (FLUSH) 10 ML SYG IV PRN (12:33)
[2018-09-10] MEDS ORDERED: ALBUTEROL SULFATE 2.5 MG/3 ML VIAL NEB PRN (12:33)
[2018-09-10] MEDS ORDERED: GLUCAGON INJ 1 MG VIAL SUBCU PRN (12:37)
[2018-09-10] MEDS ORDERED: DEXTROSE 50% 25 GM/50 ML SYG IV PRN (12:37)
[2018-09-10] MEDS: ENOXAPARIN SODIUM 40 MG/0.4 ML SYG SUBCU SCH (12:54)
[2018-09-10] MEDS ORDERED: IV SET AND CAP CHANGE INJ INJ SCH (13:00)
--- NOTE | 2018-09-10 14:30 | US ---
EXAM DESCRIPTION: Carotid Duplex CLINICAL HISTORY: tia vs cva COMPARISON: None Available. TECHNIQUE: Carotid Doppler ultrasound FINDINGS: Right Submitted images show extensive arteriosclerotic calcified plaque at the right carotid bifurcation with no flow in the right carotid bulb consistent with right ICA occlusion. Axial images show 33% area stenosis of the mid right CCA with 68% area stenosis of the right lower carotid bulb and complete occlusion of the upper bulb and right ICA. This sonographic impression can be confirmed with conventional angiography. The following flow velocities were obtained: Common carotid artery peak systolic flow velocity measures 77 centimeters per second. Internal carotid artery peak systolic flow velocity measures 0.0 centimeters per second. External carotid artery peak systolic flow velocity measures 560 centimeters per second consistent with high-grade to critical proximal stenosis. Flow in the right vertebral artery is antegrade. Left Submitted images show extensive arteriosclerotic plaque at the left carotid bifurcation with high velocity flow in the left ECA consistent with high-grade proximal stenosis. Axial images show 18% area stenosis of the left carotid bulb and 18% area stenosis of the proximal left ICA. The following flow velocities were obtained: Common carotid artery peak systolic flow velocity measures 74 centimeters per second. Internal carotid artery peak systolic flow velocity measures 115 centimeters per second. External carotid artery peak systolic flow velocity measures 291 centimeters per second. This is consistent with moderate to high-grade proximal stenosis. Flow in the left vertebral artery is antegrade. The left internal carotid to common carotid peak systolic flow velocity ratio of 1.5 is normal. IMPRESSION: Occluded right internal carotid artery. High velocity flow in the external carotid arteries bilaterally consistent with critical stenosis on the right and high-grade stenosis on the left. Antegrade flow in the vertebral arteries. Electronically signed by: Shukri Foley MD 09/10/2018 2:29 PM [facility]
[2018-09-10] MEDS: IPRATROPIUM/ALBUTEROL 3 ML VIAL NEB SCH ×2 (16:19→20:28)
[2018-09-10] MEDS: INSULIN LISPRO 100 UNITS/ML PEN SUBCU SCH ×2 (16:48→21:19)
[2018-09-10] MEDS ORDERED: PANTOPRAZOLE SODIUM IV 40 MG VIAL ONE (20:46)
[2018-09-10] MEDS ORDERED: INSULIN DEGLUDEC 24 UNIT SUBCU SCH (21:00)
[2018-09-11] MEDS: PANTOPRAZOLE SODIUM IV 40 MG VIAL IV SCH (05:58)
[2018-09-11] MEDS: INSULIN LISPRO 100 UNITS/ML PEN SUBCU SCH ×4 (07:17→21:29)
[2018-09-11] MEDS: LOSARTAN POTASSIUM 25 MG TAB PO SCH (08:21)
[2018-09-11] MEDS: amLODIPine BESYLATE 5 MG TAB PO SCH (08:21)
[2018-09-11] MEDS: ASPIRIN (CHEWABLE) 81 MG TAB PO SCH (08:21)
[2018-09-11] MEDS ORDERED: INSULIN DEGLUDEC 15 UNIT SUBCU SCH (08:54)
[2018-09-11] MEDS ORDERED: POTASSIUM CHLORIDE 20 MEQ TAB PO ONE (08:55)
[2018-09-11] MEDS ORDERED: POTASSIUM CHLORIDE 20 MEQ TAB ONE (09:08)
[2018-09-11] MEDS: IPRATROPIUM/ALBUTEROL 3 ML VIAL NEB SCH ×3 (09:18→16:30)
[2018-09-11] MEDS: SODIUM CHLORIDE 0.9% (FLUSH) 10 ML SYG IV SCH ×2 (09:21→21:29)
[2018-09-11] MEDS: ENOXAPARIN SODIUM 40 MG/0.4 ML SYG SUBCU SCH (13:05)
--- NOTE | 2018-09-11 18:32 | PN ---
DATE: 09/11/18 SUPERVISING PHYSICIAN: Roel Groves M.D. SUBJECTIVE: The patient is lying in her hospital bed. Daughter is at the bedside as well as a friend. She has no complaints of nausea, vomiting, diarrhea, constipation, chest pain or shortness of breath. We discussed her acceptance to [facility] and her daughter can take her in the morning. OBJECTIVE: VITAL SIGNS: Temperature 97.9, heart rate 87, blood pressure 142/56, respiratory rate 18, O2 sat 93% on room air. RESPIRATORY: Essentially carpal tunnel syndrome bilaterally. She is somewhat diminished at the bases. CARDIAC: Regular rate and rhythm. NEUROLOGIC: She is awake, alert and oriented times three. She does have some slurring speech and there is some weakness in her left lower extremity. LABORATORY: CBC is basically within normal limits. Glucose was 38 early this morning and it has run as high as 384 today. Hemoglobin A1c is 7.7. Potassium was slightly low this morning at 3.1. The remainder of her electrolytes were within normal limits. LDL cholesterol was 154, HDL was 64, triglycerides 106. All other labs and films have been reviewed via the EMR. ASSESSMENT: 1. 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 2. Carotid stenosis with critical stenosis on the right and high grade stenosis on the left. 3. Hypertension. 4. Chronic obstructive pulmonary disease without exacerbation. 5. Tobacco abuse in a chronic smoker. 6. History of prior cerebrovascular accident approximately 5 years ago. 7. Diabetes mellitus type 2 with hypoglycemia on admission most likely due to poor food intake. She also had an episode of hypoglycemia this morning, again her intake of food is very poor. PLAN: We will continue present supportive care. Will plan for discharge in the morning to [facility]. Because of her poor intake I have decreased her Tresiba to 15 units at bedtime. She has also received 40 mEq of potassium orally today due to her hypokalemia. Family and the patient had no questions regarding her admission to [facility]. I will check her lab in the morning. Will continue to follow her closely and treat as needed. #[id number] [facility]
[2018-09-11] MEDS ORDERED: NON-FORMULARY MEDICATION 1 EA MIS SUBCU ONE (21:32)
[2018-09-12] MEDS: PANTOPRAZOLE SODIUM IV 40 MG VIAL IV SCH (06:07)
[2018-09-12] MEDS: INSULIN LISPRO 100 UNITS/ML PEN SUBCU SCH (07:10)
[2018-09-12] MEDS: IPRATROPIUM/ALBUTEROL 3 ML VIAL NEB SCH (07:54)
[2018-09-12] MEDS: amLODIPine BESYLATE 5 MG TAB PO SCH (08:05)
[2018-09-12] MEDS: LOSARTAN POTASSIUM 25 MG TAB PO SCH (08:05)
[2018-09-12] MEDS: ASPIRIN (CHEWABLE) 81 MG TAB PO SCH (08:06)
[2018-09-12] MEDS: SODIUM CHLORIDE 0.9% (FLUSH) 10 ML SYG IV SCH (08:06)
[2018-09-12 11:27] VITALS: BP 135/62; TEMP 98.4; O2SAT 90
--- NOTE | 2018-09-13 10:20 | DS ---
SUPERVISING PHYSICIAN: Wicho Groves MD DISCHARGE DIAGNOSIS: 1. 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 2. Carotid stenosis with critical stenosis on the right and high grade stenosis on the left. 3. Hypertension. 4. Chronic obstructive pulmonary disease without exacerbation. 5. Tobacco abuse in a chronic smoker. 6. History of prior cerebrovascular accident approximately 5 years ago. 7. Diabetes mellitus, type 2, with hypoglycemia on admission most likely due to poor food intake. She also had an episode of hypoglycemia this morning, again her intake of food is very poor. HISTORY OF PRESENT ILLNESS: This is a 78-year-old female who presented to the Emergency Room with an approximately 1-day history of difficulty speaking and right lower extremity pain. She stated that the day prior to her admission she just could not walk very well and was having a difficult time with her speech. She tried to write something and she could not make her hand do what she wanted it to. It started on morning and it had not progressed since. She was brought to the Emergency Room after she had a same level fall. She states she did not hurt herself with the fall but she was concerned with the weakness. On arrival, EMS found her blood sugar to be 54 and gave her 24 grams of glucose. The blood sugar recheck was 46. The patient did say since she had the weakness and difficulty speaking, she had not eaten much, but she did take her routinely scheduled diabetic medication. She felt that below the knee on her right leg started hurting the day before she was admitted, but she was unable to tell of a specific injury. She has had an ischemic cerebrovascular accident approximately 5 years ago that left her with some residual left sided weakness. In the Emergency Room, her vital signs showed her to be afebrile, heart rate 83, blood pressure 122/70, it did go up as high as 157/69. Respiratory rate was 18, O2 sat was 94% on room air. Lab showed a CBC that was basically within normal limits. Chemistry showed sodium 143 with a slightly low potassium of 3.3, chloride 106, carbon dioxide 28, BUN 12, creatinine 0.57, glucose 48. She received some D50 in the Emergency Room and it went up to 282. Liver enzymes were within normal limits. Urinalysis was basically within normal limits. Head CT showed: 1) Age-appropriate atrophy with evidence of old small vessel ischemic type changes. 2) No acute abnormality is seen on noncontrast CT of the head. Right ankle x-ray showed two views of the right ankle that showed diffuse osteopenia of the osseous structure without evidence of acute fracture, focal bone destruction or joint dislocation. Right tibia/fibula x-ray showed negative exam with nonvisualization of the distal right tibia and fibula. Neurology was consulted and felt the patient did have a stroke, but because of the length of time since the onset of symptoms, there was no further treatment that could be done other than placing her on an aspirin and having neurologic followup. I was called for hospital admission. HOSPITAL COURSE: The patient was placed in observation. On exam after admission, she complained of left sided weakness from her old stroke, but that her right leg did not hurt like it did when she came to the Emergency Room. Over the next 24 hours, she had no further symptoms of stroke, but it was felt that she did have a stroke because of her difficulty speaking as well as some left sided weakness. It was felt she would benefit from [facility] and they were called in consultation. Her CBC remained basically within normal limits. She was also placed on prophylactic Lovenox in the hospital as well as continued on her aspirin. Her blood sugars ranged from a low of 41 to as high as 384. She was on sliding scale Humalog insulin. Today, her electrolytes were basically within normal limits. Her long-active insulin was decreased to 10 units on the night prior to her discharge because she had poor oral intake. Her blood sugar was 49 this morning, but after breakfast, it was 94. She will be discharged to [facility] today in stable condition. DISCHARGE PLAN: The patient will be discharged to [facility] for physical therapy for strengthening and conditioning. She will also have speech therapy. She is to resume her diabetic diet as well as her previous medication including an aspirin. After discharge from [facility], she is to followup with her primary care physician, Dr. Hernandez. DISCHARGE MEDICATIONS: 1. Humalog insulin. 2. Losartan. 3. Amlodipine. 4. Tresiba long-acting insulin. 5. Aspirin. 6. DuoNeb. #[id number] [facility]
== END 2018-09-12 11:42 ==
LOC: ER 07:41 → MS 10:16 → OBSVTOIN 10:16 → INTOOBSV 10:16
PROVIDERS: ADMIT Nurse Practitioner Acute Care; ATTEND Nurse Practitioner Acute Care
DX: I67.2 Cerebral atherosclerosis (principal); R47.1 Dysarthria and anarthria; G83.14 Monoplegia of lower limb affecting left nondominant side; I65.23 Occlusion and stenosis of bilateral carotid arteries; E11.649 Type 2 diabetes mellitus with hypoglycemia without coma; I10 Essential (primary) hypertension; J44.9 Chronic obstructive pulmonary disease, unspecified; F17.210 Nicotine dependence, cigarettes, uncomplicated; M79.662 Pain in left lower leg; I25.10 Atherosclerotic heart disease of native coronary artery without angina pectoris; E78.5 Hyperlipidemia, unspecified; M51.16 Intervertebral disc disorders with radiculopathy, lumbar region; Z86.73 Personal history of transient ischemic attack (TIA), and cerebral infarction without residual deficits; Z79.4 Long term (current) use of insulin; Z79.82 Long term (current) use of aspirin; Z79.899 Other long term (current) drug therapy; Z88.0 Allergy status to penicillin; Z88.6 Allergy status to analgesic agent

== ENCOUNTER 2019-04-14 16:37 | Inpatient (IN) | payer MEDICARE, MEDICAID ==
--- NOTE | 2019-04-14 17:14 | ED.PDOC ---
History of Present Illness - General Chief Complaint: Diabetic Complaint Stated Complaint: elevated blood sugar Time Seen by Provider: 04/14/19 17:08 Source: patient Exam Limitations: no limitations - History of Present Illness Initial Comments: CONCERNED ABOUT ELEVATED BLOOD SUGARS. REPORTS SOME SUGARS IN 600'S. CURRENTLY AT REHAB SO SHE HAS BEEN GETTING HER MEDICATIONS REGULARLY. Timing/Duration: unsure Severity: moderate Improving Factors: nothing Worsening Factors: nothing Allergies/Adverse Reactions: Allergies Ibuprofen [From Motrin] Allergy (Verified 02/20/19 06:26) Lisinopril Allergy (Verified 02/20/19 06:26) Penicillins Allergy (Verified 02/20/19 06:26) Home Medications: Ambulatory Orders Amlodipine Besylate 5 mg PO DAILY 09/10/18 Aspirin [Aspirin Low Strength] 81 mg PO DAILY 09/10/18 Fluoxetine HCl [PROzac] 20 mg PO DAILY 04/14/19 Insulin Aspart [Novolog] 7 unit SC TIDFD 04/14/19 Insulin Aspart [Novolog] 100 unit SC ACHS PRN 04/14/19 Insulin Detemir [Levemir] 32 units SUBCU DAILY 04/14/19 Nitrofurantoin Monohydrate Mac [Macrobid] 100 mg PO BID 04/14/19 Pantoprazole Sodium 40 mg PO DAILY 04/14/19 Sulfa/Trimeth 800/160 (Ds) Tab [Bactrim DS] 1 tablet PO BID 04/14/19 Review of Systems - Review of Systems Constitutional: Denies: chills, fever EENTM: Denies: ear pain, throat pain Respiratory: States: cough. Denies: short of breath Cardiology: Denies: chest pain, palpitations Gastrointestinal/Abdominal: Denies: nausea, vomiting Genitourinary: States: other - JUST FINISHING 10 DAY COURSE OF ABX FOR UTI. Denies: dysuria, frequency Musculoskeletal: States: no symptoms reported Skin: States: no symptoms reported Neurological: States: no symptoms reported Endocrine: States: no symptoms reported Hematologic/Lymphatic: States: no symptoms reported Past Medical History (General) - Patient Medical History Hx Seizures: No Hx Stroke: Yes Hx Dementia: No Hx Asthma: No Hx of COPD: Yes Hx Cardiac Disorders: No Hx Congestive Heart Failure: No Hx Pacemaker: No Hx Hypertension: Yes Hx Thyroid Disease: No Hx Diabetes: Yes Hx Gastroesophageal Reflux: Yes Hx Renal Disease: No Hx Cancer: No Hx of HIV: No Hx Hepatitis C: No Hx MRSA: No - Vaccination History Hx Tetanus, Diphtheria Vaccination: No Hx Influenza Vaccination: No Hx Pneumococcal Vaccination: No - Social History Hx Tobacco Use: Yes Hx Chewing Tobacco Use: No Hx Alcohol Use: No Hx Substance Use: No Hx Substance Use Treatment: No Hx Depression: No Hx Physical Abuse: No Hx Emotional Abuse: No - Activities of Daily Living Skilled Nursing/Assisted Living (if applicable):: [place] - Female History Patient : No Family Medical History - Family History Mother Family History: Unknown Age (years): 69 Living Status: Cause of : brain ca and blastoma Hx Family Asthma: No Hx Family Congestive Heart Failure: No Hx Family Hypertension: Yes Hx Family Stroke: No Hx Cardiac Disease: Yes Hx Family Diabetes: Yes - mother Age of Onset (years of age): 69 Hx Family Cancer: Yes - astrocytoma-mom Father Age (years): 86 Living Status: Cause of : heart and lungs Hx Family Asthma: No Hx Family Congestive Heart Failure: Yes Hx Family Hypertension: Yes Hx Family Stroke: No Hx Cardiac Disease: Yes Hx Family Diabetes: No Hx Family Cancer: Yes Physical Exam - Physical Exam General Appearance: Alert, No apparent distress Eye Exam: bilateral normal Ears, Nose, Throat: hearing grossly normal, normal ENT inspection Neck: non-tender, full range of motion, supple Respiratory: lungs clear, normal breath sounds Cardiovascular/Chest: regular rate, rhythm, no murmur Gastrointestinal/Abdominal: non tender, soft, no organomegaly Rectal Exam: normal exam, normal rectal tone, heme negative stool Back Exam: normal inspection, no CVA tenderness Extremity: normal range of motion, non-tender, normal inspection Neurologic: alert, normal mood/affect Skin Exam: normal color, warm/dry Lymphatic: no adenopathy Progress - Progress Progress: 04/14/19 18:15 BS ELEVATED, PNEUMONIA. WILL START ABX AND OBTAIN BC. 04/14/19 20:01 D/W JOAQUÍN WILL ADMIT 1830 - EKG/XRAY/CT XRAY: chest - RLL PNEUMONIA Departure - Departure Clinical Impression: Anemia, Hyperglycemia, Diabetes 1.5, managed as type 2, HCAP (healthcare- associated pneumonia) Time of Disposition: 18:30 Disposition: Discharge to Home or Self Care Condition: Fair Departure Forms: ED Discharge - Pt. Copy, Patient Portal Self Enrollment Instructions: DI for Diabetes Type 2 Referrals: Kenyon Hernandez MD [Family Provider] - 1-2 Weeks Home Medications: Ambulatory Orders Amlodipine Besylate 5 mg PO DAILY 09/10/18 Aspirin [Aspirin Low Strength] 81 mg PO DAILY 09/10/18 Fluoxetine HCl [PROzac] 20 mg PO DAILY 04/14/19 Insulin Aspart [Novolog] 7 unit SC TIDFD 04/14/19 Insulin Aspart [Novolog] 100 unit SC ACHS PRN 04/14/19 Insulin Detemir [Levemir] 32 units SUBCU DAILY 04/14/19 Nitrofurantoin Monohydrate Mac [Macrobid] 100 mg PO BID 04/14/19 Pantoprazole Sodium 40 mg PO DAILY 04/14/19 Sulfa/Trimeth 800/160 (Ds) Tab [Bactrim DS] 1 tablet PO BID 04/14/19 Decision To Admit - Decistion To Admit Decision to Admit Reason: Admit from ER Decision to Admit Date: 04/14/19 Decision to Admit Time: 18:30
[2019-04-14] MEDS ORDERED: SODIUM CHLORIDE 0.9% 500ML 500 ML IVS ONE ×2 (17:22→18:09)
--- NOTE | 2019-04-14 17:38 | RAD ---
EXAM DESCRIPTION: Chest,1 View CLINICAL HISTORY: ELEVATED BS COMPARISON: 30 October 2017 02 May 2016 TECHNIQUE: AP portable chest FINDINGS: Nodular infiltrate is observed at the right lung base. The left chest is clear. The heart is within range of normal. IMPRESSION: A nodular infiltrate is observed at the right lung base. Electronically signed by: Arias Bob MD 04/14/2019 5:36 PM CDT
[2019-04-14] MEDS ORDERED: INSULIN, REG.(HUMAN) 100 U/ML VIAL SUBCU ONE (18:09)
[2019-04-14] MEDS ORDERED: CEFEPIME 2 GM in SODIUM CHL 0.9% 50ML MIN-BAG+ 50 ML IVPB ONE (18:17)
[2019-04-14] MEDS ORDERED: SODIUM CHL 0.9% 50ML MIN-BAG+ 50 ML IVPB ONE (18:24)
[2019-04-14] MEDS ORDERED: CEFEPIME 2 GM VIAL ONE (18:24)
--- NOTE | 2019-04-14 20:35 | HP ---
SUPERVISING PHYSICIAN: Spencer Garza M.D. CHIEF COMPLAINT: High blood sugars as well as weakness and shortness of breath. HISTORY OF PRESENT ILLNESS: This is a 78 year-old female patient who lives at [facility]. She has had some weakness as well as a nonproductive cough over the last few days. The prison also reported that she has had some sugars in the 600s. She had recently been in rehab due to a stroke back in August and is now living at [facility] to continue her rehab. Her medications have been given routinely as she has had a history of poor medical compliance prior to her living in the prison. In the E. R. her vital signs showed temperature 98.6, heart rate 92, blood pressure 139/92, respiratory rate 20, O2 sat 94%. Laboratory was obtained. Her WBCs were 3,400 with hemoglobin 8.1, hematocrit 25.7. Blood gas after she had been put on oxygen showed pCO2 of 26, pO2 of 149, bicarb 18.5, pH 7.49, O2 sat 100. Her blood sugar was greater than 400 on the bedside blood glucose monitor and her serum draw was 541. She received some insulin in the Emergency Room and shortly thereafter it was 319. Electrolytes are basically within normal limits with the exception of her carbon dioxide was 19. Lactic acid was 1.9. Urinalysis was unremarkable. Stool for occult blood was negative. Blood cultures were drawn and chest x-ray was obtained. It shows a nodular infiltrate in the right lung base. She received some judicious fluids as well as some Cefepime and I was called for hospital admission. PAST MEDICAL HISTORY: 1. Carotid artery stenosis. 2. Cerebrovascular accident approximately 6 months ago and 5 years ago. 3. Chronic obstructive pulmonary disease in a chronic smoker. 4. Coronary artery disease. 5. Hypertension. 6. Hyperlipidemia. 7. Lumbar disc disease. 8. Lumbar radiculopathy. 9. Solitary pulmonary nodule. PAST SURGICAL HISTORY: 1. Carotid endarterectomy on the left in 2015. 2. Hernia repair in 2012. 3. Lasik surgery in 2017. OUTPATIENT MEDICATIONS: Per the EMR and awaiting verification. ALLERGIES: IBUPROFEN, LISINOPRIL AND PENICILLINS. FAMILY HISTORY: Positive for coronary artery disease, cancer, rheumatoid arthritis, diabetes mellitus type 2 and hypothyroidism. SOCIAL HISTORY: She lives in [place] at [facility]. She is . She has 2 stepchildren. She only smokes 1 or 2 cigarettes per day now that she is at [facility]. She was a heavy smoker most of her life. There is no ETOH or illicit drug use. REVIEW OF SYSTEMS: Positive for fatigue. Negative for fever or weight changes. HEENT: Negative for sinus symptoms, ear pain, vision changes or sore throat. RESPIRATORY: Positive for coughing and shortness of breath. Negative for wheezing. CARDIAC:a Negative for chest pain, palpitations or tachycardia. GASTROINTESTINAL: Negative for abdominal pain, nausea, vomiting, diarrhea. There have been no bloody stools or tar colored stools. GENITOURINARY: Negative for hematuria, dysuria or polyuria, although she does have a history of frequent urinary tract infections. NEUROLOGIC: Negative for headaches, dizziness or seizures. SKIN: Negative for lesions or rashes. PHYSICAL EXAMINATION: VITAL SIGNS: Temperature 98.2, heart rate 83, blood pressure 181/62, respiratory rate 20, O2 sat 92%. GENERAL: This is a 78 year-old think frail female lying in her hospital bed. She is in no acute distress. HEENT: Normocephalic and atraumatic. Pupils are equal and reactive. Oropharynx is clear. NECK: Supple without mass. RESPIRATORY: Essentially clear to auscultation bilaterally. She is diminished at the bases. CHEST: There is equal rise and fall of the chest with inspiration and expiration. CARDIOVASCULAR: Regular rate and rhythm. GASTROINTESTINAL: Abdomen is soft, nondistended, non-tender. Bowel sounds are positive. EXTREMITIES: No clubbing, cyanosis or edema. 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 She moves the left lower extremity a little slower than she does her right. NEUROLOGIC: She is awake, alert and oriented to person and place. She does have some difficulty answering some simple questions. LABORATORY: Labs and films are as per the History of Present Illness. ASSESSMENT: 1. Sepsis related to right lower lobe pneumonia most likely healthcare acquired. Her initial WBCs were 3,400 with heart rate of 92. 2. Hyperglycemia with no acidosis exacerbated by #1. 3. Acute anemia, microcytic hypochromic in presentation. She does have a history of anemia. 4. Cerebrovascular accident with initial left sided weakness. She has had a CVA in August of 2018 and about 5 years ago. She was in [facility] and now is at [facility]. 5. History of gastroesophageal reflux disease. 6. Chronic obstructive pulmonary disease without an acute exacerbation in a long time smoker. 7. Tobacco abuse. She is down to about 1 to 2 cigarettes several times weekly. 8. Hypertension. 9. Diabetes mellitus type 2. PLAN: We will admit the patient to the hospital. I have initiated the pneumonia guidelines and will continue her on Cefepime as ordered in the Emergency Room. Will monitor her blood cultures. I have ordered sputum culture. She will have aggressive pulmonary hygiene including nebulizer treatments both p.r.n. and scheduled. I have put her on sliding scale insulin and we may need to do some extra glucose checks to get her blood glucose under control. Her home medications may need to be adjusted. I will recheck her lab in the morning as she most likely will need blood. I am not sure where she is bleeding from, but she may need a wealth management advisor on discharge and/or a logging tractor operator swamp. She is getting a PPI for ulcer prophylaxis and Lovenox for DVT prophylaxis. I have encouraged her to stop smoking. Will continue to monitor closely and follow as needed. [facility][id number]
[2019-04-14] MEDS ORDERED: DEXTROSE 50% 25 GM/50 ML SYG IV PRN (21:37)
[2019-04-14] MEDS ORDERED: GLUCAGON INJ 1 MG VIAL SUBCU PRN (21:37)
[2019-04-14] MEDS ORDERED: LEVALBUTEROL NEBS 1.25 MG/3 ML VIAL INH PRN (21:39)
[2019-04-14] MEDS ORDERED: SODIUM CHLORIDE 0.9% (FLUSH) 10 ML SYG IV PRN (21:39)
[2019-04-14] MEDS ORDERED: ACETAMINOPHEN 325 MG TAB PO PRN (21:39)
[2019-04-14] MEDS: IV SET AND CAP CHANGE INJ INJ SCH (21:57)
[2019-04-14] MEDS: INSULIN LISPRO 100 UNITS/ML PEN SUBCU SCH (22:01)
[2019-04-15] MEDS ORDERED: CEFEPIME 2 GM VIAL ONE ×3 (05:34→19:21)
[2019-04-15] MEDS ORDERED: SODIUM CHL 0.9% 50ML MIN-BAG+ 50 ML IVPB ONE ×3 (05:34→19:21)
[2019-04-15] MEDS: CEFEPIME 2 GM in SODIUM CHL 0.9% 50ML MIN-BAG+ 50 ML IVPB SCH ×2 (05:39→19:27)
[2019-04-15] MEDS: PANTOPRAZOLE SODIUM IV 40 MG VIAL IV SCH (06:13)
[2019-04-15] MEDS ORDERED: ACETAMINOPHEN 325 MG TAB PO ONE (06:39)
[2019-04-15] MEDS ORDERED: FUROSEMIDE INJ 40 MG/4 ML VIAL IV ONE (06:39)
[2019-04-15] MEDS ORDERED: diphenhydrAMINE HCL 50 MG/ML VIAL IV ONE (06:39)
--- NOTE | 2019-04-15 06:52 | RAD ---
Findings: Frontal and lateral chest radiographs. Comparison April 14, 2019. Cardiac silhouette and pulmonary vasculature are within normal limits. No pneumothorax. No pleural effusion. Increased right lower lobe airspace disease. Atherosclerotic plaque in the thoracic aorta. No acute osseous abnormality. Soft tissues are unremarkable. IMPRESSION: Increased right lower lobe pneumonia. Recommend follow-up radiographs following appropriate therapy. Electronically signed by: Adam Ponce MD 04/15/2019 6:50 AM CDT
[2019-04-15] MEDS ORDERED: SODIUM CHLORIDE 0.9% 500ML 500 ML IVS SCH (07:00)
[2019-04-15] MEDS: INSULIN LISPRO 100 UNITS/ML PEN SUBCU SCH ×4 (07:17→20:55)
[2019-04-15] MEDS: LEVALBUTEROL NEBS 1.25 MG/3 ML VIAL INH SCH ×4 (08:52→20:32)
[2019-04-15] MEDS: amLODIPine BESYLATE 5 MG TAB PO SCH (09:50)
[2019-04-15] MEDS: ASPIRIN (CHEWABLE) 81 MG TAB PO SCH (09:50)
[2019-04-15] MEDS: FLUoxetine HCL 20 MG CAP PO SCH (09:50)
[2019-04-15] MEDS: INSULIN DETEMIR 100 UNITS/ML PEN SUBCU SCH (09:50)
[2019-04-15] MEDS: SODIUM CHLORIDE 0.9% (FLUSH) 10 ML SYG IV SCH ×2 (09:51→20:54)
[2019-04-15] MEDS: ENOXAPARIN SODIUM 40 MG/0.4 ML SYG SUBCU SCH (20:54)
--- NOTE | 2019-04-15 22:28 | PN ---
DATE: 04/15/19 SUPERVISING PHYSICIAN: Spencer Garza M.D. SUBJECTIVE: The patient is sitting up in bed. She says she feels much better than she did yesterday since she has gotten the blood. She still has some mild cough but denies shortness of breath, chest pain, nausea or vomiting. OBJECTIVE: VITAL SIGNS: Temperature 98.2, heart rate 78, blood pressure 159/69, respiratory rate 16, O2 sat 97% on room air. RESPIRATORY: Somewhat diminished at the bases, but otherwise clear to auscultation. There is an occasional scattered rhonchi in the apices. CARDIAC: Regular rate and rhythm. GASTROINTESTINAL: Abdomen is soft, nondistended, non-tender. Bowel sounds are positive. NEUROLOGIC: She is awake, alert and oriented times three. LABORATORY: WBCs are 4,000 with hemoglobin 7.2, hematocrit 22.8. Blood sugars were greater than 400 but have now normalized to 215. CMP was basically unremarkable with the exception of her glucose. Preliminary blood cultures are negative to date. Sputum culture is pending. Chest x-ray shows increased right lower lobe pneumonia. Recommend followup radiographs following appropriate therapy. All other labs and films have been reviewed via the EMR. ASSESSMENT: 1. Sepsis related to right lower lobe pneumonia most likely healthcare acquired. Her initial WBCs were 3,400 with heart rate of 92. 2. Hyperglycemia with no acidosis exacerbated by #1. 3. Acute anemia, microcytic hypochromic in presentation. She is receiving 2 units of packed red blood cells today. 4. Cerebrovascular accident with initial left sided weakness. She has had a CVA in August of 2018 and about 5 years ago. She was in [facility] and now is at [facility]. 5. History of gastroesophageal reflux disease. 6. Chronic obstructive pulmonary disease without an acute exacerbation in a long time smoker. 7. Tobacco abuse. She is down to about 1 to 2 cigarettes several times weekly. 8. Hypertension. 9. Diabetes mellitus type 2. PLAN: We will continue present supportive care, including her antibiotics of Cefepime. Will monitor her cultures and her x-rays. Her blood sugars have been stabilized somewhat. We may need to adjust some of her medications. I will repeat her lab in the morning. I am not quite sure where she is bleeding, but she will probably need a hematology consultation at some point. I have ordered routine labs for in the morning. I will hold on her chest x-ray for now. I have encouraged good pulmonary hygiene. Will continue to monitor closely and follow as needed. [facility][id number] [facility]
[2019-04-16] MEDS: CEFEPIME 2 GM in SODIUM CHL 0.9% 50ML MIN-BAG+ 50 ML IVPB SCH ×2 (05:39→17:54)
[2019-04-16] MEDS: PANTOPRAZOLE SODIUM IV 40 MG VIAL IV SCH (06:05)
[2019-04-16] MEDS: FLUoxetine HCL 20 MG CAP PO SCH (08:22)
[2019-04-16] MEDS: amLODIPine BESYLATE 5 MG TAB PO SCH (08:22)
[2019-04-16] MEDS: SODIUM CHLORIDE 0.9% (FLUSH) 10 ML SYG IV SCH ×2 (08:22→21:20)
[2019-04-16] MEDS: ASPIRIN (CHEWABLE) 81 MG TAB PO SCH (08:22)
[2019-04-16] MEDS: INSULIN DETEMIR 100 UNITS/ML PEN SUBCU SCH (08:23)
[2019-04-16] MEDS: INSULIN LISPRO 100 UNITS/ML PEN SUBCU SCH ×4 (08:24→21:21)
[2019-04-16] MEDS ORDERED: POTASSIUM CHLORIDE 20 MEQ TAB PO ONE (09:13)
[2019-04-16] MEDS: LEVALBUTEROL NEBS 1.25 MG/3 ML VIAL INH SCH ×4 (09:27→20:47)
[2019-04-16] MEDS ORDERED: FLUCONAZOLE 150 MG TAB PO ONE (15:25)
[2019-04-16] MEDS ORDERED: SODIUM CHL 0.9% 50ML MIN-BAG+ 50 ML IVPB ONE ×2 (17:19→19:56)
[2019-04-16] MEDS ORDERED: CEFEPIME 2 GM VIAL ONE ×2 (17:19→19:56)
--- NOTE | 2019-04-16 17:47 | PN ---
DATE: 04/16/19 SUPERVISING PHYSICIAN: Spencer Garza M.D. SUBJECTIVE: The patient is sitting up in bed visiting with her daughter. She feels much better, although she still has occasional cough and some shortness of breath. She denies any chest pain, nausea or vomiting. OBJECTIVE: VITAL SIGNS: Temperature 97, heart rate 77, blood pressure 146/79, respiratory rate 16, O2 sat 98% on room air. RESPIRATORY: She does have some scattered rhonchi in the right mid to right lower lobe, otherwise clear to auscultation. CARDIAC: Regular rate and rhythm. GASTROINTESTINAL: Abdomen is soft, nondistended, non-tender. Bowel sounds are positive. NEUROLOGIC: She is awake, alert and oriented times three. LABORATORY: WBCs have normalized to 5,600 with a normal hemoglobin and hematocrit of 12 and 37.3. Electrolytes are basically within normal limits with the exception of her potassium is slightly low at 3.5. Blood sugars have run between 162 and 331. Preliminary blood cultures show no growth after 24 hours. Her sputum culture is pending. All other labs and films have been reviewed via the EMR. ASSESSMENT: 1. Sepsis related to right lower lobe pneumonia most likely healthcare acquired. Her initial WBCs were 3,400 with heart rate of 92. 2. Hyperglycemia with no acidosis exacerbated by #1. 3. Acute anemia, microcytic hypochromic in presentation. She is receiving 2 units of packed red blood cells today. 4. Cerebrovascular accident with initial left sided weakness. She has had a CVA in August of 2018 and about 5 years ago. She was in [facility] and now is at [facility]. 5. History of gastroesophageal reflux disease. 6. Chronic obstructive pulmonary disease without an acute exacerbation in a long time smoker. 7. Tobacco abuse. She is down to about 1 to 2 cigarettes several times weekly. 8. Hypertension. 9. Diabetes mellitus type 2. PLAN: We will continue present supportive care. Her routine insulin has been restarted and that may need to be adjusted. Will continue to watch her sugars. I have given her some potassium supplementation and reordered labs for in the morning. She will also have a chest x-ray. She will continue on her Cefepime and will monitor her cultures closely. Hopefully she can be discharged tomorrow or the next day. Will continue good pulmonary hygiene. Her H&H has also improved, but I am not sure why she is losing blood. She will need a hematology or GI workup after discharge. She will go to [facility]. Will continue to monitor closely and follow as needed. #[id number] [facility]
[2019-04-16] MEDS: ENOXAPARIN SODIUM 40 MG/0.4 ML SYG SUBCU SCH (21:20)
[2019-04-17] MEDS: CEFEPIME 2 GM in SODIUM CHL 0.9% 50ML MIN-BAG+ 50 ML IVPB SCH ×2 (06:05→18:09)
[2019-04-17] MEDS: PANTOPRAZOLE SODIUM IV 40 MG VIAL IV SCH (06:30)
[2019-04-17] MEDS: INSULIN LISPRO 100 UNITS/ML PEN SUBCU SCH ×4 (07:09→20:58)
--- NOTE | 2019-04-17 07:42 | RAD ---
EXAM DESCRIPTION: Chest,2 Views CLINICAL HISTORY:78 years Female, RLL PNA Comparison: April 15, 2019 FINDINGS: Patchy opacity right lung base No pleural effusion. No pneumothorax. Cardiac and mediastinal silhouette is unremarkable. No acute osseous abnormality. Aortic calcifications. Soft tissues are unremarkable. IMPRESSION: Grossly unchanged patchy opacity right lung base representing pneumonia. Continued follow-up to ensure resolution. Electronically signed by: Christiano Cerda MD 04/17/2019 7:39 AM CDT
[2019-04-17] MEDS: LEVALBUTEROL NEBS 1.25 MG/3 ML VIAL INH SCH ×4 (08:03→20:18)
[2019-04-17] MEDS: INSULIN DETEMIR 100 UNITS/ML PEN SUBCU SCH (08:48)
[2019-04-17] MEDS: amLODIPine BESYLATE 5 MG TAB PO SCH (08:50)
[2019-04-17] MEDS: FLUoxetine HCL 20 MG CAP PO SCH (08:50)
[2019-04-17] MEDS: ASPIRIN (CHEWABLE) 81 MG TAB PO SCH (08:50)
[2019-04-17] MEDS: SODIUM CHLORIDE 0.9% (FLUSH) 10 ML SYG IV SCH ×2 (08:53→20:59)
--- NOTE | 2019-04-17 16:35 | PN ---
DATE: 04/17/19 SUPERVISION PHYSICIAN: Spencer Garza M.D. SUBJECTIVE: The patient is sitting on the edge of the bed eating lunch. She has actually been ambulating with assistance of a walker. She still has a cough and some mild shortness of breath, but denies any other complaints. OBJECTIVE: VITAL SIGNS: Temperature 98, pulse 72, blood pressure 170/79, respirations 16, satting 96% on room air at rest. I's and O's show a negative balance of 590 with 810 in, 1400 out. Weight is 53.6 kg. GENERAL: The patient appears to be comfortable in no acute distress. She is alert. CHEST: Sounds have just a very faint rhonchi heard in the right side, more prominent on the lateral middle aspect. Left is fairly clear, just slightly diminished. HEART: Regular rate and rhythm. ABDOMEN: Soft, non-tender. Positive bowel sounds. EXTREMITIES: Without any edema. NEUROLOGIC: She is alert and oriented times three. LABORATORY: White count 6,700, hemoglobin and hematocrit are staying stable at 12.2 and 37.6. RBC indices are microcytic in presentation, hypochromic with a platelet count of 358,000. Differential shows to be without a left shift. Chemistries show normal electrolytes with BUN 15, creatinine 0.5. Blood sugars range between 156 and 259. Total bilirubin is slightly elevated at 1.1, otherwise liver functions are all within normal limits. Magnesium 1.9. Blood cultures remain negative at 48 hours. RADIOLOGY: Repeat chest x-ray this morning per radiology interpretation shows grossly unchanged patchy opacity right lung base representing pneumonia. ASSESSMENT: 1. Sepsis related to right lower lobe pneumonia, healthcare acquired, showing improvement with Cefepime. 2. Hyperglycemia exacerbated by #1 showing to be fairly well controlled. 3. Acute anemia, microcytic hypochromic in presentation probably due to chronic illness with the patient receiving 2 units of packed red blood cells without any complications showing to be stable within the first 24 hours. 4. Cerebrovascular accident with initial left sided weakness. She has had a CVA in August of 2018 and about 5 years ago. She was in [facility] and now is at [facility]. 5. History of gastroesophageal reflux disease. 6. Chronic obstructive pulmonary disease without an acute exacerbation in a long time smoker. 7. Tobacco abuse. She is down to about 1 to 2 cigarettes several times weekly. 8. Hypertension. 9. Diabetes mellitus type 2. PLAN: Will continue current plan of care at this point with Cefepime and hope to be able to transition her to oral medications tomorrow and discharge back to [facility]. Blood sugars seem to be fairly stable now. Will continue with good pulmonary hygiene. Will monitor H&H for the next 24 hours. On discharge, she will need to have a workup by hematology and GI. Until we can discharge her back to [facility] will continue to monitor and treat as needed. [facility][id number] [facility]
[2019-04-17] MEDS ORDERED: CEFEPIME 2 GM VIAL ONE ×2 (18:04→19:27)
[2019-04-17] MEDS ORDERED: SODIUM CHL 0.9% 50ML MIN-BAG+ 50 ML IVPB ONE (18:04)
[2019-04-17] MEDS: ENOXAPARIN SODIUM 40 MG/0.4 ML SYG SUBCU SCH (20:58)
[2019-04-17] MEDS: IV SET AND CAP CHANGE INJ INJ SCH (23:13)
[2019-04-18] MEDS: CEFEPIME 2 GM in SODIUM CHL 0.9% 50ML MIN-BAG+ 50 ML IVPB SCH (05:38)
[2019-04-18] MEDS: PANTOPRAZOLE SODIUM IV 40 MG VIAL IV SCH (06:17)
[2019-04-18] MEDS: INSULIN LISPRO 100 UNITS/ML PEN SUBCU SCH (07:33)
[2019-04-18] MEDS: LEVALBUTEROL NEBS 1.25 MG/3 ML VIAL INH SCH (07:54)
[2019-04-18 07:59] VITALS: O2SAT 94
[2019-04-18] MEDS: amLODIPine BESYLATE 5 MG TAB PO SCH (09:14)
[2019-04-18] MEDS: ASPIRIN (CHEWABLE) 81 MG TAB PO SCH (09:14)
[2019-04-18] MEDS: SODIUM CHLORIDE 0.9% (FLUSH) 10 ML SYG IV SCH (09:14)
[2019-04-18] MEDS: FLUoxetine HCL 20 MG CAP PO SCH (09:14)
[2019-04-18] MEDS: INSULIN DETEMIR 100 UNITS/ML PEN SUBCU SCH (09:14)
[2019-04-18 10:50] VITALS: BP 160/78; TEMP 98
--- NOTE | 2019-04-19 10:03 | DS ---
SUPERVISING PHYSICIAN: Zach Lloyd MD ADMISSION DIAGNOSIS: 1. Sepsis related to right lower lobe pneumonia most likely healthcare acquired. Her initial WBCs were 3,400 with heart rate of 92. 2. Hyperglycemia with no acidosis exacerbated by #1. 3. Acute anemia, microcytic hypochromic in presentation. She does have a history of anemia. 4. Cerebrovascular accident with initial left sided weakness. She has had a CVA in August of 2018 and about 5 years ago. She was in [facility] and now is at [facility]. 5. History of gastroesophageal reflux disease. 6. Chronic obstructive pulmonary disease without an acute exacerbation in a long time smoker. 7. Tobacco abuse. She is down to about 1 to 2 cigarettes several times weekly. 8. Hypertension. 9. Diabetes mellitus, type 2. DISCHARGE DIAGNOSIS: 1. Sepsis related to right lower lobe pneumonia, healthcare acquired, showing improved with cefepime and transitioned to oral antibiotics with cefdinir. 2. Hyperglycemia exacerbated by #1 showing to be fairly well controlled. 3. Acute anemia, microcytic hypochromic in presentation probably due to chronic illness with the patient receiving 2 units of packed red blood cells without any complications showing to be stable within the first 24 hours. 4. Cerebrovascular accident with initial left sided weakness. She has had a CVA in August of 2018 and about 5 years ago. She was in [facility] and now is at [facility]. 5. History of gastroesophageal reflux disease. 6. Chronic obstructive pulmonary disease without an acute exacerbation in a long time smoker. 7. Tobacco abuse. She is down to about 1 to 2 cigarettes several times weekly. 8. Hypertension. 9. Diabetes mellitus, type 2. REASON FOR HOSPITALIZATION: This is a 78 year-old female patient who lives at [facility]. She has had some weakness as well as a nonproductive cough over the last few days. The detention also reported that she has had some sugars in the 600s. She had recently been in rehab due to a stroke back in August and is now living at [facility] to continue her rehab. Her medications have been given routinely as she has had a history of poor medical compliance prior to her living in the detention. In the E. R. her vital signs showed temperature 98.6, heart rate 92, blood pressure 139/92, respiratory rate 20, O2 sat 94%. Laboratory was obtained. Her WBCs were 3,400 with hemoglobin 8.1, hematocrit 25.7. Blood gas after she had been put on oxygen showed pCO2 of 26, pO2 of 149, bicarb 18.5, pH 7.49, O2 sat 100. Her blood sugar was greater than 400 on the bedside blood glucose monitor and her serum draw was 541. She received some insulin in the Emergency Room and shortly thereafter it was 319. Electrolytes are basically within normal limits with the exception of her carbon dioxide was 19. Lactic acid was 1.9. Urinalysis was unremarkable. Stool for occult blood was negative. Blood cultures were drawn and chest x-ray was obtained. It shows a nodular infiltrate in the right lung base. She received judicious fluids, cefepime and was admitted in stable condition. LABORATORY: White count on admission was 3.4. At discharge, it was 6.7. Initial hemoglobin was 8.1 and hematocrit 25.7. She did drop her hemoglobin to 7.2 and hematocrit 22.8. After 2 units of packed red blood cells, she was stable at hemoglobin 12.6 and hematocrit 39.4. Platelet count 350,000. Differential was without a left shift. Indices initially indicated a microcytic/hypochromic presentation. She had a blood gas on admission on supplemental oxygen that showed pCO2 25, pO2 149, pH 7.49, bicarb 18.5, saturation 100%. Chemistries initially on admission showed sodium 133, glucose 541. Corrected, her sodium was 144. Serum osmolality 295, lactic acid 1.9. Liver functions were all within normal limits. BUN 24, creatinine 0.84. Carbon dioxide was low at 19, but her anion gap was normal at 17. She was started on fluids and given insulin. Blood sugars finally did stabilize, but were still elevated in the 200s, ranging from 171 to 259. Electrolytes did normalize. BUN 19. Liver functions again were within normal limits. Urinalysis showed 500 glucose, 15 ketones. She had one occult blood stool that was negative. MICROBIOLOGY: Blood cultures were negative at 4 days. Sputum sample cancelled due to greater than 10 epithelial cells. RADIOLOGY: Chest x-ray initially on admission per radiologic interpretation showed nodular infiltrate observed in the right lung base. Multiple x-rays were followed through hospitalization, the last being on 04/17/19, the day before discharge, and showed grossly unchanged patchy opacity in the right lung base representing pneumonia with recommended followup to resolution. HOSPITAL COURSE: Ms. Carpio was admitted and started on antibiotics for sepsis secondary to right lower lobe pneumonia as well as hyperglycemia. Her blood sugars were treated with insulin and she did stabilize fairly well with that. She tolerated antibiotic therapy and was showing good improvement on aggressive bronchial hygiene as well as chest percussive therapy. While in the hospital, she did drop her hemoglobin and hematocrit and required transfusion of 2 units of packed red blood cells and had no complications from this and was showing stable hemoglobin and hematocrit prior to discharge. It was felt she had shown clinical improvement and was stable enough to discharge and continue with outpatient management. PLAN: Ms. Carpio was discharged back to [facility] on 04/18/19 to resume previous orders and to followup with Dr. Hernandez on 04/26/19 at 13:15. Diet was diabetic diet as tolerated. Activity per physical therapy. All other orders as prior to hospitalization. MEDICATIONS AT DISCHARGE: 1. Cefdinir 300 mg, #20, no refill. She will need a continued workup for the anemia and possibly GI consultation as well as hematology to address the anemia and requirement for transfusion. DISPOSITION: The patient was discharged back to [facility]. CONDITION AT DISCHARGE: Stable and improved. #[id number] [facility]
== END 2019-04-18 11:15 | DRG 871 ==
LOC: ER 16:37 → MS 20:34 → OBSVTOIN 20:34
PROVIDERS: ADMIT Nurse Practitioner Acute Care; ATTEND Nurse Practitioner Family
PROC: 30233N1 Transfusion of Nonautologous Red Blood Cells into Peripheral Vein, Percutaneous Approach (ICD-10-PCS; principal; 2019-04-15)
DX: A41.9 Sepsis, unspecified organism (principal); J18.1 Lobar pneumonia, unspecified organism; I69.354 Hemiplegia and hemiparesis following cerebral infarction affecting left non-dominant side; Y95 Nosocomial condition; D50.9 Iron deficiency anemia, unspecified; E11.65 Type 2 diabetes mellitus with hyperglycemia; K21.9 Gastro-esophageal reflux disease without esophagitis; J44.9 Chronic obstructive pulmonary disease, unspecified; F17.210 Nicotine dependence, cigarettes, uncomplicated; I10 Essential (primary) hypertension; I25.10 Atherosclerotic heart disease of native coronary artery without angina pectoris; E78.5 Hyperlipidemia, unspecified; M51.16 Intervertebral disc disorders with radiculopathy, lumbar region; Z66 Do not resuscitate; R91.1 Solitary pulmonary nodule; Z88.0 Allergy status to penicillin; Z88.6 Allergy status to analgesic agent; Z91.19 Patient's noncompliance with other medical treatment and regimen; Z88.8 Allergy status to other drugs, medicaments and biological substances

== ENCOUNTER → 2019-10-31 | Outpatient (CLI) | payer MEDICARE, MEDICAID ==
--- NOTE | 2019-10-31 13:54 | CT ---
TECHNIQUE: Volumetric CT angiographic data acquisition obtained of the head and neck using CTA head and neck protocol following the intravenous administration of contrast. Axial reconstructions submitted. Coronal, oblique and sagittal MIP slab reconstructions also performed on computer workstation. 3D MIP reformats provided. Grading system is mild <50%, moderate 50-69%, and severe 70% and greater. This exam was performed according to our departmental dose-optimization program, which includes automated exposure control, adjustment of the mA and/or kV according to patient size and/or use of iterative reconstruction technique. CLINICAL HISTORY PROVIDED: OCCLUSION AND STENOSIS OF BILATERAL CAROTID ARTERIES COMPARISON: 09/10/2018 FINDINGS: Aorta / Proximal Great Vessels : Atherosclerotic plaque in the aortic arch. No hemodynamically significant stenosis at the origins of the great vessels. Right Carotid: Heavy atherosclerotic plaque at the carotid bulb. 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 There is disc desiccation of flow at the [place]. Right Vertebral: Unremarkable. No stenosis, occlusion, or dissection. Left Carotid: Atherosclerotic plaque in the carotid bulb and carotid siphon. Suspected prior endarterectomy. High-grade stenosis at the origin of the left external carotid artery. No hemodynamically significant stenosis in the left internal carotid artery or common carotid artery. Left Vertebral: Unremarkable. No stenosis, occlusion, or dissection. Visible Intracranial Vasculature: Unremarkable. No stenosis, occlusion, or dissection. Incidental Findings: None of significance. IMPRESSION: 1. 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 Distal reconstitution of flow at the level of the [place]. 2. High-grade stenosis at the origin of the left external carotid artery. Electronically signed by: Adam Ponce MD 10/31/2019 1:52 PM TONGUE AND GROOVE MACHINE FEEDER
== END ==
LOC: CT 13:08
PROVIDERS: ATTEND Family Medicine
DX: I65.23 Occlusion and stenosis of bilateral carotid arteries (principal)

== ENCOUNTER 2020-08-05 07:23 | Emergency (ER) | payer MEDICARE, MEDICAID ==
[2020-08-05] MEDS ORDERED: SODIUM CHLORIDE 0.9% (FLUSH) 10 ML SYG IV PRN (07:36)
--- NOTE | 2020-08-05 07:41 | ED.PDOC ---
History of Present Illness - General Chief Complaint: Syncope/Near Syncope Stated Complaint: fall with right hip pain Time Seen by Provider: 08/05/20 07:36 Source: patient, RN notes reviewed, Vital Signs reviewed, EMS Exam Limitations: no limitations - History of Present Illness Initial Comments: Patient is a 80-year-old white female who presents from the sn[facility] with complaints of syncope and fall. Patient complains of some right hip pain. Patient denies any headache, blurry vision, dizziness, chest pain, shortness of breath, nausea, vomiting, diarrhea. Patient has a history of hypertension, COPD and A. fib. Patient denies any symptoms at this time.The syncope was transitory. Patient denies striking her head.The right hip pain is throbbing in nature. Is constant. Worse with movement. There is no foreshortening or rotation of the hip. Timing/Prior Episodes: single episode today Precipitating Factors: none Context: standing Loss of Consciousness: brief (seconds) Current Symptoms: back to normal Allergies/Adverse Reactions: Allergies Watermelon Flavor Allergy (Mild, Verified 08/05/20 08:04) Ibuprofen [From Motrin] Allergy (Verified 08/05/20 08:04) Lisinopril Allergy (Verified 08/05/20 08:04) Penicillins Allergy (Verified 08/05/20 08:04) Home Medications: Ambulatory Orders Amlodipine Besylate 5 mg PO DAILY 09/10/18 Aspirin [Aspirin Low Strength] 81 mg PO DAILY 09/10/18 Fluoxetine HCl [Prozac] 20 mg PO DAILY 04/14/19 Insulin Aspart [Novolog] 7 unit SC TIDFD 04/14/19 Insulin Aspart [Novolog] 100 unit SC ACHS PRN 04/14/19 Insulin Detemir [Levemir Pen] 32 units SUBCU DAILY 04/14/19 Pantoprazole Sodium 40 mg PO DAILY 04/14/19 Cefdinir [Omnicef] 300 mg PO BID #20 cap 04/18/19 Review of Systems - Review of Systems Constitutional: States: see HPI, weakness. Denies: chills, fever, malaise EENTM: States: no symptoms reported. Denies: eye pain, blurred vision, double vision Respiratory: States: no symptoms reported. Denies: cough, short of breath, stridor Cardiology: States: see HPI, syncope. Denies: chest pain, palpitations Gastrointestinal/Abdominal: States: no symptoms reported. Denies: abdominal pain, diarrhea, nausea, vomiting Genitourinary: States: no symptoms reported. Denies: dysuria, frequency Musculoskeletal: States: see HPI, joint pain - right hip. Denies: neck pain Skin: States: no symptoms reported. Denies: change in color, rash Neurological: States: see HPI, weakness. Denies: headache, numbness, paresthesia, tremors Endocrine: States: no symptoms reported. Denies: increased hunger, increased thirst, increased urine Hematologic/Lymphatic: States: no symptoms reported. Denies: blood clots, easy bleeding All other Systems: No Change from Baseline Past Medical History (General) - Patient Medical History Hx Seizures: No Hx Stroke: Yes Hx Dementia: No Hx Asthma: No Hx of COPD: Yes Hx Cardiac Disorders: No Hx Congestive Heart Failure: No Hx Pacemaker: No Hx Hypertension: Yes Hx Thyroid Disease: No Hx Diabetes: Yes Hx Gastroesophageal Reflux: Yes Hx Renal Disease: No Hx Cancer: No Hx of HIV: No Hx Hepatitis C: No Hx MRSA: No - Vaccination History Hx Tetanus, Diphtheria Vaccination: No Hx Influenza Vaccination: No Hx Pneumococcal Vaccination: No - Social History Hx Tobacco Use: Yes Hx Chewing Tobacco Use: No Hx Alcohol Use: No Hx Substance Use: No Hx Substance Use Treatment: No Hx Depression: No Hx Physical Abuse: No Hx Emotional Abuse: No - Female History Patient : No Physical Exam - Physical Exam General Appearance: Alert, Anxious, Frail, Well Developed, Well Groomed, Well Hydrated, Well Nourished Eyes, Ears, Nose, Throat Exam: PERRL/EOMI, normal ENT inspection, TMs normal Neck: non-tender, full range of motion, supple, normal inspection Cardiovascular/Respiratory: regular rate, rhythm, no M/R/G, normal peripheral pulses, no JVD, normal breath sounds, no respiratory distress Gastrointestinal/Abdominal: normal bowel sounds, non tender, soft, no organomegaly Back Exam: normal inspection, no CVA tenderness, no vertebral tenderness Extremity: no pedal edema, no calf tenderness, pelvis stable, other - mild TTP of right hip. No reduction in PROM. 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 08/05/20 10:27 Patient symptoms have resolved. She has no hip fracture. Syncope was transient and may have only been near syncope and not true full syncope. Though the D- dimer is elevated, patient has no chest pain, is not short of breath and is not tachycardic. I do not believe this slightly elevated D-dimer is indicative of a PE. Plan on discharge back to the snf. I discussed the plan of care with the patient she voices understanding and agreement. Herrera Sr M.D. #[id number] - Results/Orders Results/Orders: EKG performed 05 August 2020 at 0731 hrs.: Normal sinus rhythm at 65 bpm, normal axis deviation, no ST or T wave changes concerning for ischemia, normal EKG. No comparison EKG available at this time. EXAM: AP view(s) of the pelvis. INDICATION: Fall with right hip pain. COMPARISON: None. FINDINGS: No acute fracture or dislocation. Phleboliths within the pelvis. Moderate amount of stool within the colon and rectum. No large soft tissue swelling. IMPRESSION: 1. No acute fracture. Electronically signed by: Jimmy Aguirre MD 08/05/2020 8:00 AM [facility] [employer] EXAMINATION: CT Head without contrast INDICATION: Syncope. Fall. COMPARISON: None TECHNIQUE: Axial CT scan of the head was obtained without intravenous contrast. Coronal and sagittal reformats were provided for further interpretation. This CT exam was performed using one or more of the following dose reduction techniques: Automated exposure control, Adjustment of the mA and/or kV according to patient size, Use of iterative reconstruction technique FINDINGS: BASILAR CISTERNS: Intact. BRAIN: Symmetric extra-axial spaces. Age- related atrophy with compensatory dilation of the ventricles and sulci. Hypoattenuating lesions in the periventricular white matter, most compatible with small vessel ischemic changes. No intracranial hemorrhage. VENTRICLES: No hydrocephalus. No mass effect or midline shift. ORBITS: Orbits and orbital contents are grossly normal. BONES: No depressed calvarial fractures. SOFT TISSUES: Intact SINUSES: Some mucosal thickening of the left maxillary sinus. MASTOID AIR CELLS: Clear IMPRESSION: 1. No intracranial hemorrhage, mass effect, or midline shift. 2. Chronic aging changes of the brain. Electronically signed by: Enrique Cornejo MD 08/05/2020 8:14 AM [facility] [employer] EXAM: XR Chest, 1 View CLINICAL HISTORY: The patient is 80 years old and is Female; fall and weakness TECHNIQUE: Single view of the chest. COMPARISON: April 17, [address] chest October 30, 2017. FINDINGS: Lungs: Right lower lobe pulmonary mass again noted, increased in size. Centrilobular emphysema. Calcified granuloma left lung. Pleural space: No pleural effusion or pneumothorax. Heart: Unremarkable. No cardiomegaly. Mediastinum: Unremarkable. Bones/joints: No acute fracture visualized. No free air in the visualized upper abdomen. IMPRESSION: 1. Right lower lobe pulmonary mass again noted, increased in size. 2. Centrilobular emphysema. Electronically signed by: Astrid Amezcua MD 08/05/2020 8:00 08/05/20 07:36 Sodium Chloride 0.9% (Flush) [Saline Flush Syringe] 3 ml IV PRN PRN 08/05/20 07:45 EKG STAT 08/05/20 09:00 Pulse Ox Daily Laboratory Results - last 24 hr 08/05/20 08/05/20 08:30 08:30 WBC 5.1 RBC 4.24 Hgb 11.0 L Hct 33.2 L MCV 78.3 L MCH 25.9 L MCHC 33.0 RDW 13.9 Plt Count 376 MPV 8.2 Absolute Neuts (auto) 3.50 Absolute Lymphs (auto) 1.00 Absolute Monos (auto) 0.50 Absolute Eos (auto) 0.00 Absolute Basos (auto) 0.10 Neutrophils % 68.4 Lymphocytes % 19.4 L Monocytes % 10.2 H Eosinophils % 0.8 L Basophils % 1.2 PT 9.3 INR < 1.00 PTT (SP) 21.0 L D-Dimer, Quantitative 671.0 H* Sodium 140 Potassium 4.1 Chloride 104 Carbon Dioxide 25 Anion Gap 15.1 BUN 13 Creatinine 0.77 BUN/Creatinine Ratio 16.9 Random Glucose 213 H Serum Osmolality 285.9 Calcium 9.0 Magnesium 2.1 Total Bilirubin 0.5 Direct Bilirubin < 0.1 Indirect Bilirubin 0.4 AST 23 ALT 14 Alkaline Phosphatase 111 Creatine Kinase 43 CK-MB (CK-2) 1.9 CK-MB (CK-2) % Not Reportable Troponin I < 0.02 Serum Total Protein 7.3 Albumin 3.6 Vital Signs 08/05/20 08/05/20 07:25 07:36 Temperature 97.8 F Pulse Rate [ 67 67 Pulse ox] Respiratory 18 18 Rate Blood Pressure 144/61 [L arm] O2 Sat by Pulse 93 L Oximetry Departure - Departure Clinical Impression: Syncope Qualifiers: Syncope type: vasovagal syncope Qualified Code(s): R55 - Syncope and collapse Fall Qualifiers: Encounter type: initial encounter Qualified Code(s): W19.XXXA - Unspecified fall, initial encounter Time of Disposition: 10:29 Disposition: Discharge to Home or Self Care Condition: Good Departure Forms: ED Discharge - Pt. Copy, Patient Portal Self Enrollment Instructions: Syncope (Fainting) (DC) Diet: resume usual diet Activity: increase activity as tolerated Referrals: ADAM LESTER [Primary Care Provider] - 1-5 Days Home Medications: Ambulatory Orders Amlodipine Besylate 5 mg PO DAILY 09/10/18 Aspirin [Aspirin Low Strength] 81 mg PO DAILY 09/10/18 Fluoxetine HCl [Prozac] 20 mg PO DAILY 04/14/19 Insulin Aspart [Novolog] 7 unit SC TIDFD 04/14/19 Insulin Aspart [Novolog] 100 unit SC ACHS PRN 04/14/19 Insulin Detemir [Levemir Pen] 32 units SUBCU DAILY 04/14/19 Pantoprazole Sodium 40 mg PO DAILY 04/14/19 Cefdinir [Omnicef] 300 mg PO BID #20 cap 04/18/19
--- NOTE | 2020-08-05 08:01 | RAD ---
EXAM: AP view(s) of the pelvis. INDICATION: Fall with right hip pain. COMPARISON: None. FINDINGS: No acute fracture or dislocation. Phleboliths within the pelvis. Moderate amount of stool within the colon and rectum. No large soft tissue swelling. IMPRESSION: 1. No acute fracture. Electronically signed by: Jimmy Aguirre MD 08/05/2020 8:00 AM [facility]
--- NOTE | 2020-08-05 08:02 | RAD ---
EXAM: XR Chest, 1 View CLINICAL HISTORY: The patient is 80 years old and is Female; fall and weakness TECHNIQUE: Single view of the chest. COMPARISON: April 17, [address] chest October 30, 2017. FINDINGS: Lungs: Right lower lobe pulmonary mass again noted, increased in size. Centrilobular emphysema. Calcified granuloma left lung. Pleural space: No pleural effusion or pneumothorax. Heart: Unremarkable. No cardiomegaly. Mediastinum: Unremarkable. Bones/joints: No acute fracture visualized. No free air in the visualized upper abdomen. IMPRESSION: 1. Right lower lobe pulmonary mass again noted, increased in size. 2. Centrilobular emphysema. 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
--- NOTE | 2020-08-05 08:15 | CT ---
EXAMINATION: CT Head without contrast INDICATION: Syncope. Fall. COMPARISON: None TECHNIQUE: Axial CT scan of the head was obtained without intravenous contrast. Coronal and sagittal reformats were provided for further interpretation. This CT exam was performed using one or more of the following dose reduction techniques: Automated exposure control, Adjustment of the mA and/or kV according to patient size, Use of iterative reconstruction technique FINDINGS: BASILAR CISTERNS: Intact. BRAIN: Symmetric extra-axial spaces. Age-related atrophy with compensatory dilation of the ventricles and sulci. Hypoattenuating lesions in the periventricular white matter, most compatible with small vessel ischemic changes. No intracranial hemorrhage. VENTRICLES: No hydrocephalus. No mass effect or midline shift. ORBITS: Orbits and orbital contents are grossly normal. BONES: No depressed calvarial fractures. SOFT TISSUES: Intact SINUSES: Some mucosal thickening of the left maxillary sinus. MASTOID AIR CELLS: Clear IMPRESSION: 1. No intracranial hemorrhage, mass effect, or midline shift. 2. Chronic aging changes of the brain. Electronically signed by: Enrique Cornejo MD 08/05/2020 8:14 AM [facility]
[2020-08-05 11:03] VITALS: BP 174/87; TEMP 97.4; O2SAT 97
== END 2020-08-05 11:02 ==
LOC: ER 07:23
DX: R55 Syncope and collapse (principal); M25.551 Pain in right hip; R91.8 Other nonspecific abnormal finding of lung field; J43.2 Centrilobular emphysema; R79.89 Other specified abnormal findings of blood chemistry; J44.9 Chronic obstructive pulmonary disease, unspecified; I10 Essential (primary) hypertension; I48.91 Unspecified atrial fibrillation; W18.39XA Other fall on same level, initial encounter; Y92.129 Unspecified place in nursing home as the place of occurrence of the external cause; E11.9 Type 2 diabetes mellitus without complications; K21.9 Gastro-esophageal reflux disease without esophagitis; Z86.73 Personal history of transient ischemic attack (TIA), and cerebral infarction without residual deficits; Z79.82 Long term (current) use of aspirin; Z79.899 Other long term (current) drug therapy; Z87.891 Personal history of nicotine dependence; Z79.4 Long term (current) use of insulin; Z88.8 Allergy status to other drugs, medicaments and biological substances; Z88.0 Allergy status to penicillin; Z88.6 Allergy status to analgesic agent

== ENCOUNTER 2020-08-09 11:31 | Observation (INO) | payer MEDICARE, MEDICAID ==
[2020-08-09] MEDS ORDERED: ONDANSETRON ODT 8 MG TAB SL ONE (11:41)
[2020-08-09] MEDS ORDERED: SODIUM CHLORIDE 0.9% 1000ML 500 ML IVS ONE ×2 (11:41→14:03)
--- NOTE | 2020-08-09 12:36 | RAD ---
Procedure: XR ABDOMEN SUPINE AND ERECT WITH CHEST (ABD ACUTE SERIES) Exam Date: 08/09/2020 Ordering Provider: Kevin Hernandez Clinical Indication: nv, covid positive Comparison: 08/05/2020 Findings: Upright chest x-ray: Cardiomediastinal silhouette is unremarkable. Aortic calcification. Pulmonary vasculature is unremarkable. Calcified granulomas in the left lung. Left lung otherwise clear. Right basilar subsegmental atelectasis and/or infiltrate. Known right basilar lung mass less conspicuous on today's exam. Lungs are hyperinflated. No significant pleural effusion. No pneumothorax. Flat and upright abdomen: Nonobstructive bowel gas pattern. Moderate to large stool burden in the left colon. There is no pneumoperitoneum. There are no suspicious calcifications. Pelvic phleboliths. No acute osseous abnormalities. Pessary device in the pelvis. Impression: 1. Right basilar subsegmental atelectasis and/or infiltrate. 2. Moderate to large stool burden in the left colon. 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
[2020-08-09] MEDS ORDERED: AZITHROMYCIN IV 500 MG in SODIUM CHLORIDE 0.9% 250ML 250 ML IVPB ONE (12:55)
[2020-08-09] MEDS ORDERED: cefTRIAXone SODIUM 1 GM in SODIUM CHL 0.9% 50ML MIN-BAG+ 50 ML IVPB ONE (12:55)
[2020-08-09] MEDS ORDERED: DEXAMETHASONE INJ 4 MG/ML VIAL IV ONE (12:55)
--- NOTE | 2020-08-09 13:01 | ED.PDOC ---
History of Present Illness - General Chief Complaint: Respiratory Problem Stated Complaint: covid positive: n/v and cough Time Seen by Provider: 08/09/20 11:35 Source: patient Exam Limitations: no limitations - History of Present Illness Initial Comments: The patient is a 80-year-old female sent up from the care home secondary to multiple episodes of nausea and vomiting overnight. She denies any blood. No diarrhea. No fever. She did test positive for coronavirus this morning at the facility. Oxygen saturations ranged from 89 to 94% on room air. No respiratory distress. Mild fine rales to the right lower lobe. She is alert and cooperative. No point abdominal tenderness. She had fallen 5 days ago and is still sore from that. Timing/Duration: 24 hours Severity: moderate Improving Factors: nothing Worsening Factors: nothing Associated Symptoms: loss of appetite, malaise, nausea/vomiting, weakness Allergies/Adverse Reactions: Allergies Watermelon Flavor Allergy (Mild, Verified 08/05/20 08:04) Ibuprofen [From Motrin] Allergy (Verified 08/05/20 08:04) Lisinopril Allergy (Verified 08/05/20 08:04) Penicillins Allergy (Verified 08/05/20 08:04) Home Medications: Ambulatory Orders Amlodipine Besylate 5 mg PO DAILY 09/10/18 Aspirin [Aspirin Low Strength] 81 mg PO DAILY 09/10/18 Fluoxetine HCl [Prozac] 20 mg PO DAILY 04/14/19 Insulin Aspart [Novolog] 7 unit SC TIDFD 04/14/19 Insulin Aspart [Novolog] 100 unit SC ACHS PRN 04/14/19 Insulin Detemir [Levemir Pen] 32 units SUBCU DAILY 04/14/19 Pantoprazole Sodium 40 mg PO DAILY 04/14/19 Cefdinir [Omnicef] 300 mg PO BID #20 cap 04/18/19 Review of Systems - Review of Systems Constitutional: States: malaise EENTM: States: nose congestion, throat pain - Very mild Respiratory: States: cough Cardiology: States: no symptoms reported Gastrointestinal/Abdominal: States: nausea, vomiting. Denies: constipation, diarrhea Genitourinary: States: no symptoms reported Musculoskeletal: States: no symptoms reported, see HPI - Mild residual discomfort from the fall 5 days ago. Skin: States: no symptoms reported Neurological: States: no symptoms reported, see HPI - Chronic changes only Endocrine: States: no symptoms reported All other Systems: No Change from Baseline Past Medical History (General) - Patient Medical History Hx Seizures: No Hx Stroke: Yes Hx Dementia: No Hx Asthma: No Hx of COPD: Yes Hx Cardiac Disorders: Yes - atrial fibrillation Hx Congestive Heart Failure: No Hx Pacemaker: No Hx Hypertension: Yes Hx Thyroid Disease: No Hx Diabetes: Yes Hx Gastroesophageal Reflux: Yes Hx Renal Disease: No Hx Cancer: No Hx of HIV: No Hx Hepatitis C: No Hx MRSA: No - Vaccination History Hx Tetanus, Diphtheria Vaccination: No Hx Influenza Vaccination: No Hx Pneumococcal Vaccination: No - Social History Hx Tobacco Use: Yes Hx Chewing Tobacco Use: No Hx Alcohol Use: No Hx Substance Use: No Hx Substance Use Treatment: No Hx Depression: No Hx Physical Abuse: No Hx Emotional Abuse: No - Activities of Daily Living Correction/Assisted Living (if applicable):: [facility] - Female History Patient : No Family Medical History - Family History Mother Family History: Unknown Age (years): 69 Living Status: Cause of : brain ca and blastoma Hx Family Asthma: No Hx Family Congestive Heart Failure: No Hx Family Hypertension: Yes Hx Family Stroke: No Hx Cardiac Disease: Yes Hx Family Diabetes: Yes - mother Age of Onset (years of age): 69 Hx Family Cancer: Yes - astrocytoma-mom Father Age (years): 86 Living Status: Cause of : heart and lungs Hx Family Asthma: No Hx Family Congestive Heart Failure: Yes Hx Family Hypertension: Yes Hx Family Stroke: No Hx Cardiac Disease: Yes Hx Family Diabetes: No Hx Family Cancer: Yes Physical Exam - Physical Exam General Appearance: Alert, Comfortable, No apparent distress Eye Exam: bilateral normal Ears, Nose, Throat: hearing grossly normal, nasal congestion Neck: non-tender, supple Respiratory: no respiratory distress, no accessory muscle use, rales - Primarily the right lower lobe Cardiovascular/Chest: normal peripheral pulses, regular rate, rhythm, no edema Peripheral Pulses: radial,right: 2+, radial,left: 2+ Gastrointestinal/Abdominal: non tender, soft Rectal Exam: deferred Back Exam: no vertebral tenderness Extremity: no pedal edema, no calf tenderness, normal capillary refill Neurologic: dean of instruction II-XII nml as tested, alert, normal mood/affect Skin Exam: normal color Comments: Vital Signs - 24 hr 1108/09/20 08/09/20 11:36 12:14 12:15 Temperature 98.0 F Pulse Rate [ 78 72 95 H right brachial] Respiratory 18 18 20 Rate Blood Pressure 150/68 132/60 103/51 [left brachial] O2 Sat by Pulse 92 L 92 L 92 L Oximetry 08/09/20 12:16 Temperature Pulse Rate [ 105 H right brachial] Respiratory 20 Rate Blood Pressure 103/62 [left brachial] O2 Sat by Pulse 93 L Oximetry Laboratory Tests 08/09/20 08/09/20 08/09/20 11:50 11:50 11:50 WBC 3.3 L RBC 4.61 Hgb 11.8 L Hct 35.5 L MCV 76.9 L MCH 25.7 L MCHC 33.4 RDW 13.8 Plt Count 336 MPV 8.2 Absolute Neuts (auto) 1.90 Absolute Lymphs (auto) 1.00 Absolute Monos (auto) 0.50 Absolute Eos (auto) 0.00 Absolute Basos (auto) 0.00 Neutrophils % 55.6 Lymphocytes % 28.8 Monocytes % 14.2 H Eosinophils % 0.1 L Basophils % 1.3 PT INR PTT (SP) Fibrinogen D-Dimer, Quantitative Sodium 137 Potassium 3.7 Chloride 102 Carbon Dioxide 24 Anion Gap 14.7 BUN 13 Creatinine 0.68 BUN/Creatinine Ratio 19.1 Random Glucose 149 H Serum Osmolality 276.7 Lactic Acid Calcium 8.7 Magnesium 2.1 Ferritin 13.7 Total Bilirubin 0.6 AST 19 ALT 15 Alkaline Phosphatase 117 LD Total 112 Creatine Kinase 38 CK-MB (CK-2) 1.2 CK-MB (CK-2) % Not Reportable Troponin I < 0.02 C-Reactive Protein 0.9 B-Natriuretic Peptide 104.0 H Serum Total Protein 7.1 Albumin 3.7 Globulin 3.4 Albumin/Globulin Ratio 1.1 Amylase 29 Lipase 24 08/09/20 08/09/20 11:50 11:50 WBC RBC Hgb Hct MCV MCH MCHC RDW Plt Count MPV Absolute Neuts (auto) Absolute Lymphs (auto) Absolute Monos (auto) Absolute Eos (auto) Absolute Basos (auto) Neutrophils % Lymphocytes % Monocytes % Eosinophils % Basophils % PT 9.6 INR < 1.00 PTT (SP) 23.8 Fibrinogen 374 D-Dimer, Quantitative 553.0 H Sodium Potassium Chloride Carbon Dioxide Anion Gap BUN Creatinine BUN/Creatinine Ratio Random Glucose Serum Osmolality Lactic Acid 1.3 Calcium Magnesium Ferritin Total Bilirubin AST ALT Alkaline Phosphatase LD Total Creatine Kinase CK-MB (CK-2) CK-MB (CK-2) % Troponin I C-Reactive Protein B-Natriuretic Peptide Serum Total Protein Albumin Globulin Albumin/Globulin Ratio Amylase Lipase Acute abdominal series shows moderate constipation as well as a right lower lobe infiltrate. See report for details. EKG shows normal sinus rhythm at 79 bpm. Mild right axis deviation. Normal R wave progression. No definitive ST segment or T wave changes diagnostic for acute ischemia. Normal QT interval. Progress - Progress Progress: 08/09/20 13:02 The patient is a 80-year-old female presenting from the care home with coronavirus and likely nausea and vomiting associated with that as well as mild hypoxia. The patient was tilt positive on vital signs. X-ray show some constipation and a right lower lobe infiltrate. The patient is being admitted to control nausea. She is receiving gentle rehydration. The patient is being started on dexamethasone at the lower dose due to the diabetes. She is also being placed on Rocephin and azithromycin. Blood cultures are being done. Adm it for continued care. If the patient continues to do well she may be able to go home in 48 hours. [email or web address] [email or web address] [id number] Departure - Departure Clinical Impression: Coronavirus infection, Viral gastritis, Mild dehydration Right lower lobe pneumonia Qualifiers: Pneumonia type: due to unspecified organism Qualified Code(s): J18.9 - Pneumonia, unspecified organism Disposition: Admit Patient Departure Forms: ED Discharge - Pt. Copy, Patient Portal Self Enrollment Referrals: ADAM LESTER [Primary Care Provider] - 1-2 Weeks Home Medications: Ambulatory Orders Amlodipine Besylate 5 mg PO DAILY 09/10/18 Aspirin [Aspirin Low Strength] 81 mg PO DAILY 09/10/18 Fluoxetine HCl [Prozac] 20 mg PO DAILY 04/14/19 Insulin Aspart [Novolog] 7 unit SC TIDFD 04/14/19 Insulin Aspart [Novolog] 100 unit SC ACHS PRN 04/14/19 Insulin Detemir [Levemir Pen] 32 units SUBCU DAILY 04/14/19 Pantoprazole Sodium 40 mg PO DAILY 04/14/19 Cefdinir [Omnicef] 300 mg PO BID #20 cap 04/18/19 Decision To Admit - Decistion To Admit Decision to Admit Reason: Accidental Injury
--- NOTE | 2020-08-09 13:32 | HP ---
SUPERVISING PHYSICIAN: Kenyon Hernandez MD CHIEF COMPLAINT: COVID-19. HISTORY OF PRESENT ILLNESS: This is a 80-year-old female patient who lives at [facility]. She has had several episodes of nausea and vomiting over the last 24 hours. She also has a worsening cough. There is no fever. She tested positive for coronavirus this morning at the facility. Her O2 saturations dropped to the upper 80s on room air. With supplemental oxygen, she stays in the mid 90s. Her initial vital signs showed temperature 98 with heart rate 78. Heart rate went up to 105. Blood pressure 150/68, respiratory rate 18 to 20, O2 saturation 92% on room air and did drop to 88-89% multiple times in the ER. Her lab showed WBC 3,300, hemoglobin 11.8, hematocrit 35.5. D-dimer 553. Electrolytes were basically within normal limits. Glucose 149, lactic acid 1.3. Liver enzymes were within normal limits. BNP 104. Blood cultures were drawn. Chest x-ray and abdominal x-ray show 1) Some right basilar subsegmental atelectasis and/or infiltrates. 2) Moderate to large stool burden in the colon. She was given some fluids, Zofran, Decadron, ceftriaxone and azithromycin in the Emergency Room. She was admitted to the hospital in stable condition. PAST MEDICAL HISTORY: 1. Carotid artery stenosis. 2. Cerebrovascular accident in 2019. 3. Chronic obstructive pulmonary disease in a chronic smoker. 4. Coronary artery disease. 5. Hypertension. 6. Hyperlipidemia. 7. Lumbar disc disease. 8. Lumbar radiculopathy. 9. History of pulmonary nodule. PAST SURGICAL HISTORY: 1. Left carotid endarterectomy. 2. Hernia repair. 3. Lasik surgery. OUTPATIENT MEDICATIONS: Per the EMR and awaiting verification. ALLERGIES: IBUPROFEN, LISINOPRIL, PENICILLIN. FAMILY HISTORY: Positive for coronary artery disease, rheumatoid arthritis, diabetes, hypothyroidism. SOCIAL HISTORY: The patient lives at [facility]. She is . She has two children. She was previously a heavy smoker, but now only smokes 2 cigarettes per day. There is no history of ETOH or illicit drug use. REVIEW OF SYSTEMS: GENERAL: Positive for fatigue. Negative for weakness or weight changes. HEENT: Positive for nasal congestion and rhinorrhea as well as sore throat. RESPIRATORY: Positive for coughing and shortness of breath. Negative for wheezing. CARDIAC: Negative for chest pain, palpitations or tachycardia. GASTROINTESTINAL: As per history of present illness. GENITOURINARY: Negative for hematuria, dysuria or polyuria. MUSCULOSKELETAL: Negative for arthralgias, myalgias although she did fall approximately 5 to 6 days ago and she is still somewhat sore from that. SKIN: Negative for lesions or rashes. NEUROLOGIC: Positive for consideration. Negative for headache or seizures. PHYSICAL EXAMINATION: VITAL SIGNS: Temperature 97.4, heart rate 87, blood pressure 169/78, respiratory rate 18, O2 saturation 96% on 1 liter nasal cannula. GENERAL: This is a 80-year-old female patient who is lying in her hospital bed. She is coughing. She looks to be in mild respiratory distress. HEENT: Normocephalic, atraumatic. Pupils are equal and reactive. Oropharynx is clear. NECK: Supple without mass. RESPIRATORY: Essentially clear to auscultation bilaterally although she is somewhat diminished on the right side. CARDIOVASCULAR: Regular rate and rhythm. GASTROINTESTINAL: Abdomen is soft, nondistended, nontender. Bowel sounds are positive. EXTREMITIES: No cyanosis, clubbing or edema. NEUROLOGIC: Awake, alert and oriented times three. Cranial nerves II-XII are grossly intact as tested. SKIN: Warm and dry. IMPRESSION: 1. COVID-19 pneumonitis with concerns for right lower lobe healthcare acquired pneumonia. 2. Constipation. 3. Coronary artery disease. 4. Hypertension. 5. Hyperlipidemia. 6. Chronic obstructive pulmonary disease with mild exacerbation. PLAN: The patient has been placed in observation. COVID guidelines have been started and she will continue on azithromycin, ceftriaxone, Decadron, albuterol both scheduled and p.r.n. as well as Remdesivir. I will order the COVID lab. She will have a CT of the chest in the morning. She will have aggressive pulmonary hygiene. She will have Lovenox for DVT prophylaxis, Protonix for ulcer prophylaxis. We will continue to monitor the patient closely and follow as needed. #[id number] [facility]
[2020-08-09] MEDS ORDERED: CYCLOBENZAPRINE HCL 5 MG TAB PO ONE (14:04)
[2020-08-09] MEDS ORDERED: SODIUM CHLORIDE 0.9% (FLUSH) 10 ML SYG IV PRN (17:13)
[2020-08-09] MEDS ORDERED: ACETAMINOPHEN 325 MG TAB PO PRN (17:13)
[2020-08-09] MEDS ORDERED: ALBUTEROL INHALER 64 PUFF/8GM INH PRN (17:19)
[2020-08-09] MEDS ORDERED: GLUCAGON INJ 1 MG VIAL SUBCU PRN (17:22)
[2020-08-09] MEDS ORDERED: DEXTROSE 50% 25 GM/50 ML SYG IV PRN (17:22)
[2020-08-09] MEDS ORDERED: IV SET AND CAP CHANGE INJ INJ SCH (17:30)
[2020-08-09] MEDS ORDERED: REMDESIVIR 200 MG in SODIUM CHLORIDE 0.9% 250ML 250 ML IVPB SCH (17:30)
[2020-08-09] MEDS ORDERED: ONDANSETRON INJ 4 MG/2 ML VIAL IV PRN (17:34)
[2020-08-09] MEDS: guaiFENesin ER TAB 600 MG TAB PO SCH (20:21)
[2020-08-09] MEDS: DOCUSATE SODIUM 100 MG CAP PO SCH (20:21)
[2020-08-09] MEDS: SODIUM CHLORIDE 0.9% (FLUSH) 10 ML SYG IV SCH (20:22)
[2020-08-09] MEDS: INSULIN LISPRO 100 UNITS/ML PEN SUBCU SCH (20:54)
[2020-08-09] MEDS ORDERED: ENOXAPARIN SODIUM 40 MG/0.4 ML SYG SUBCU SCH (21:00)
[2020-08-09] MEDS ORDERED: ATORVASTATIN 10 MG TAB PO SCH (21:00)
[2020-08-09] MEDS: ALBUTEROL INHALER 64 PUFF/8GM INH SCH (21:45)
[2020-08-10 05:15] VITALS: O2SAT 92
[2020-08-10] MEDS ORDERED: PANTOPRAZOLE SODIUM IV 40 MG VIAL IV SCH (06:30)
[2020-08-10] MEDS: INSULIN LISPRO 100 UNITS/ML PEN SUBCU SCH ×2 (08:28→12:30)
--- NOTE | 2020-08-10 08:58 | CT ---
CT CHEST WITHOUT IV CONTRAST HISTORY: 80 years Female COVID 19 pneumonia COMPARISON: Chest radiograph dated August 05, 2020. TECHNIQUE: Helical tomographic images of the chest were obtained without the use of intravenous contrast. Coronal and sagittal reformatted images were also provided. This exam was performed according to our departmental dose-optimization program, which includes automated exposure control, adjustment of the mA and/or kV according to patient size and/or use of iterative reconstruction technique. FINDINGS: Lungs and central airways: Radiologic changes of emphysema. Consolidation and ground glass attenuation in the posterior right lower lung. This includes a 3.2 cm rounded masslike consolidation in the periphery of the right lower lobe. Constellation of findings are suggestive of organizing pneumonia. Mild groundglass and consolidation in the perihilar right middle lobe. Pleura: No pleural effusion or pleural thickening. Heart/pericardium: Heart size is normal. No significant pericardial fluid detected. Mediastinum/lily: No mediastinal or hilar mass or lymphadenopathy. Vascular structures: There are scattered atherosclerotic changes noted, including involvement of the coronary arteries. Regional surrounding soft tissues: No acute process detected. Bones: No acute process detected. Included abdomen: No acute process detected. IMPRESSION: Constellation of findings favor organizing pneumonia in the right lower lobe and less pronounced within the perihilar right middle lobe, consistent with provided history. Electronically signed by: Ryland Echols MD 08/10/2020 8:56 AM [employer]
[2020-08-10] MEDS ORDERED: amLODIPine BESYLATE 5 MG TAB PO SCH (09:00)
[2020-08-10] MEDS ORDERED: DEXAMETHASONE INJ 10 MG/ML VIAL IV SCH (09:00)
[2020-08-10] MEDS ORDERED: cefTRIAXone SODIUM 1 GM in SODIUM CHL 0.9% 50ML MIN-BAG+ 50 ML IVPB SCH (09:00)
[2020-08-10] MEDS ORDERED: metFORMIN HCL 500 MG TAB PO SCH (09:00)
[2020-08-10] MEDS ORDERED: ASPIRIN (CHEWABLE) 81 MG TAB PO SCH (09:00)
[2020-08-10] MEDS ORDERED: FLUoxetine HCL 20 MG CAP PO SCH (09:00)
[2020-08-10] MEDS ORDERED: AZITHROMYCIN IV 500 MG VIAL IVPB ONE (09:11)
[2020-08-10] MEDS ORDERED: SODIUM CHLORIDE 0.9% 250ML 250 ML ONE (09:11)
[2020-08-10] MEDS ORDERED: cefTRIAXone SODIUM 1 GM VIAL ONE (09:12)
[2020-08-10] MEDS ORDERED: SODIUM CHL 0.9% 50ML MIN-BAG+ 50 ML IVPB ONE (09:12)
[2020-08-10] MEDS: DOCUSATE SODIUM 100 MG CAP PO SCH (09:19)
[2020-08-10] MEDS: SODIUM CHLORIDE 0.9% (FLUSH) 10 ML SYG IV SCH (09:20)
[2020-08-10] MEDS: ALBUTEROL INHALER 64 PUFF/8GM INH SCH ×2 (09:37→17:30)
[2020-08-10] MEDS: guaiFENesin ER TAB 600 MG TAB PO SCH (09:44)
[2020-08-10] MEDS ORDERED: AZITHROMYCIN IV 500 MG in SODIUM CHLORIDE 0.9% 250ML 250 ML IVPB SCH (10:00)
[2020-08-10] MEDS ORDERED: REMDESIVIR 100 MG in SODIUM CHLORIDE 0.9% 250ML 250 ML IVPB SCH (12:00)
[2020-08-10] MEDS ORDERED: MAGNESIUM HYDROXIDE 30 ML UD PO ONE (14:24)
[2020-08-10 17:27] VITALS: BP 135/72; TEMP 98
--- NOTE | 2020-08-11 14:03 | DS ---
SUPERVISING PHYSICIAN: Kenyon Hernandez MD ADMISSION DIAGNOSES: 1. COVID-19 pneumonitis with concerns for right lower lobe healthcare acquired pneumonia. 2. Constipation. 3. Coronary artery disease. 4. Hypertension. 5. Hyperlipidemia. 6. Chronic obstructive pulmonary disease with mild exacerbation. DISCHARGE DIAGNOSES: 1. COVID-19 pneumonitis. 2. Constipation. 3. Coronary artery disease. 4. Hypertension. 5. Hyperlipidemia. 6. Chronic obstructive pulmonary disease with mild exacerbation secondary to #1. HISTORY OF PRESENT ILLNESS: This is a 80-year-old female patient who lives at [facility]. She has had several episodes of nausea and vomiting over the last 24 hours. She also has a worsening cough. There is no fever. She tested positive for coronavirus this morning at the facility. Her O2 saturations dropped to the upper 80s on room air. With supplemental oxygen, she stays in the mid 90s. Her initial vital signs showed temperature 98 with heart rate 78. Heart rate went up to 105. Blood pressure 150/68, respiratory rate 18 to 20, O2 saturation 92% on room air and did drop to 88-89% multiple times in the ER. Her lab showed WBC 3,300, hemoglobin 11.8, hematocrit 35.5. D-dimer 553. Electrolytes were basically within normal limits. Glucose 149, lactic acid 1.3. Liver enzymes were within normal limits. BNP 104. Blood cultures were drawn. Chest x-ray and abdominal x-ray show 1) Some right basilar subsegmental atelectasis and/or infiltrates. 2) Moderate to large stool burden in the colon. She was given some fluids, Zofran, Decadron, ceftriaxone and azithromycin in the Emergency Room. She was admitted to the hospital in stable condition. LABORATORY: White count on discharge 3.5, hemoglobin 10.2, hematocrit 31.1, platelet count 282,000, differential showed to be without a left shift. Coagulation studies showed a D-dimer of 514 on discharge. Chemistries showed normal electrolytes with glucose ranging between 147 and 353, calcium normal at 8.4, lactic acid 1.3. Magnesium 2.0. Liver functions all was negative. C- reactive protein 1.3. MICROBIOLOGY: Blood cultures negative at 48 hours. RADIOLOGY: CT of the chest per radiology interpretation showed constellation of findings favoring organizing pneumonia in the right lower lobe and less pronounced within the perihilar right middle lobe consistent with provided history. HOSPITAL COURSE: Ms. Carpio was placed in observation initially for treatment and initiation for Covid pneumonitis/pneumonia. She was treated with Rocephin azithromycin, Lovenox, Decadron and Remdesivir, breathing treatments. She was showing good response to treatment. Laboratory was trending indicating she was improving. Vital signs on discharge showed she was afebrile at 98, oxygen saturation 92% on one liter nasal cannula, pulse 78, blood pressure 135/72. PLAN: Ms. Carpio was discharged back to [facility] with instructions to followup with Dr. Green. She was to resume her usual medications, usual diet, activity levels as per prior hospitalization. She was given instructions to return to the Emergency Department if she should have any concerning symptoms. She is to take medications prescribed on discharge. DISCHARGE MEDICATIONS: 1. Decadron 6 mg daily, #8. 2. Guaifenesin 600 mg twice a day. 3. Cefdinir 300 mg twice a day, #12. 4. Albuterol inhaler as needed and p.r.n. every 4 hours. 5. Azithromycin 500 mg, #4, no refills. CONDITION ON DISCHARGE: Stable and improved. DISPOSITION: Patient is discharged, transferred back to [facility]. [id number]
== END 2020-08-10 16:00 ==
LOC: ER 11:31 → MS 13:28
PROVIDERS: ADMIT Nurse Practitioner Acute Care; ATTEND Nurse Practitioner Family
DX: U07.1 COVID-19 (principal); J12.89 Other viral pneumonia; J44.1 Chronic obstructive pulmonary disease with (acute) exacerbation; R09.02 Hypoxemia; E86.0 Dehydration; K59.00 Constipation, unspecified; I25.10 Atherosclerotic heart disease of native coronary artery without angina pectoris; I10 Essential (primary) hypertension; E78.5 Hyperlipidemia, unspecified; F17.210 Nicotine dependence, cigarettes, uncomplicated; E11.9 Type 2 diabetes mellitus without complications; I48.91 Unspecified atrial fibrillation; K21.9 Gastro-esophageal reflux disease without esophagitis; M51.16 Intervertebral disc disorders with radiculopathy, lumbar region; Z79.4 Long term (current) use of insulin; Z79.82 Long term (current) use of aspirin; Z79.51 Long term (current) use of inhaled steroids; Z79.899 Other long term (current) drug therapy; Z88.0 Allergy status to penicillin; Z88.8 Allergy status to other drugs, medicaments and biological substances; Z86.73 Personal history of transient ischemic attack (TIA), and cerebral infarction without residual deficits
CPT/HCPCS: 96366; 96367; 96365; 96375 ×2; 96376; 96372 ×2; J0696 ×2; J1100 ×2; J7030; J7050 ×4; J1650; J0456 ×2; A4216; J1815; 85379 ×2; 82553; 80053 ×2; 82948 ×3; 36415 ×3; 85384 ×2; 82150; 86140 ×2; 85025 ×2; 82550 ×2; 87040 ×2; 82728; 83615 ×2; 83690; 83735 ×2; 85730 ×2; 85610; 84484; 83880; 36416; 83605; 74019; 71250; 94664; 94640; 94762; 99285; 93005; G0378

== ENCOUNTER → 2020-08-14 | Outpatient (CLI) | payer MEDICARE, MEDICAID | LOC: GT 08:15 | PROVIDERS: ATTEND Family Medicine | DX: R09.02 Hypoxemia (principal); R71.8 Other abnormality of red blood cells ==

== ENCOUNTER → 2020-10-29 | Outpatient (CLI) | payer MEDICARE, MEDICAID | LOC: GT 22:54 | PROVIDERS: ATTEND Family Medicine | DX: N39.0 Urinary tract infection, site not specified (principal); E11.65 Type 2 diabetes mellitus with hyperglycemia ==

== ENCOUNTER → 2020-11-05 | Outpatient (CLI) | payer MEDICARE, MEDICAID | LOC: LAB.O 07:23 | PROVIDERS: ATTEND Family Medicine | DX: I27.0 Primary pulmonary hypertension (principal); E78.5 Hyperlipidemia, unspecified; E11.9 Type 2 diabetes mellitus without complications ==

== ENCOUNTER → 2020-11-06 | Outpatient (CLI) | payer MEDICARE, MEDICAID ==
--- NOTE | 2020-11-06 12:27 | CT ---
CT CHEST WITH IV CONTRAST HISTORY: 80 years Female PULMONARY NODULE COMPARISON: August 10, 2020. TECHNIQUE: Helical tomographic images of the chest were obtained after the administration of intravenous contrast per facility protocol. Coronal and sagittal reformatted images were provided. This exam was performed according to our departmental dose-optimization program, which includes automated exposure control, adjustment of the mA and/or kV according to patient size and/or use of iterative reconstruction technique. FINDINGS: Lungs and central airways: Severe radiologic changes of emphysema again demonstrated. Redemonstrated irregular masslike consolidation in the right lower lung measuring up to approximately 3.5 cm in maximum axial diameter on today's examination, with adjacent linear atelectasis and/or scarring. Size and configuration grossly appear stable to slightly increased compared to the prior study. Adjacent consolidation in the posterior margin of the right lower lung appears resolved. No new or progressive pulmonary nodule or mass identified elsewhere. No additional focal airspace disease identified. Central airways are patent. Pleura: No pleural effusion or pleural thickening. Heart/pericardium: Heart size is normal. No significant pericardial fluid detected. Mediastinum/lily: No mediastinal or hilar mass or lymphadenopathy. Vasculature: Severe scattered atherosclerotic changes noted, including involvement of the coronary arteries. No evidence of a pulmonary embolus. Regional surrounding soft tissues: Unremarkable. Bones: No acute process detected. Included abdomen: No acute process detected. IMPRESSION: Persistence of the masslike density in the right lower lung with resolution of previously seen adjacent pneumonia raises suspicion of malignancy, particularly in the setting of emphysematous changes. Less likely, unchanged organizing pneumonia or granulomatous pneumoconiosis can mimic this appearance. PET CT and/or percutaneous biopsy could be obtained for increased diagnostic confidence. Severe atherosclerotic changes. Electronically signed by: Ryland Echols MD 11/06/2020 12:25 PM [facility]
== END ==
LOC: CT 09:15
PROVIDERS: ATTEND Family Medicine
DX: R91.1 Solitary pulmonary nodule (principal); J43.9 Emphysema, unspecified